=== PATIENT | female | born 1980 | race Caucasian/White ===

== ENCOUNTER → 2022-03-23 12:33 | Outpatient (BNVA) | payer MEDICARE, SELFPAY | PROVIDERS: Visit Provider Family Medicine | DX: M25.551 Pain in right hip (principal) | CPT/HCPCS: 73502 ==

== ENCOUNTER → 2022-04-03 11:54 | Outpatient (BNVA) | payer MEDICARE, SELFPAY | PROVIDERS: PCP Family Medicine; Visit Provider Family Medicine | DX: M25.559 Pain in unspecified hip (principal); L68.0 Hirsutism | CPT/HCPCS: 82040; 82947; 84144; 84146; 84270; 84403; 84443 ==

== ENCOUNTER 2022-04-29 06:00 | Outpatient (RCR) | payer MEDICARE, SELFPAY | END 2022-05-13 23:59 | disposition home or self-care (01) | LOC: TPT 06:00 | PROVIDERS: PCP Family Medicine; Visit Provider Family Medicine | DX: M25.559 Pain in unspecified hip (principal) | CPT/HCPCS: 97110; 97162 ==

== ENCOUNTER → 2022-05-12 11:55 | Outpatient (BNVA) | payer MEDICARE, SELFPAY | PROVIDERS: PCP Family Medicine; Visit Provider Family Medicine | DX: L68.0 Hirsutism (principal); M25.559 Pain in unspecified hip | CPT/HCPCS: 80053; 82040; 82672; 84270; 84402; 84403 ==

== ENCOUNTER 2022-05-14 06:00 | Outpatient (RCR) | payer MEDICARE, SELFPAY | END 2022-06-13 23:59 | disposition home or self-care (01) | LOC: TPT 06:00 | PROVIDERS: PCP Family Medicine; Visit Provider Family Medicine | DX: M25.559 Pain in unspecified hip (principal) | CPT/HCPCS: 97110 ==

== ENCOUNTER 2022-05-19 11:31 | Inpatient (IN) | payer MEDICARE, SELFPAY ==
--- NOTE | 2022-05-19 11:33 | ED.C_ITS ---
HPI - Psych General: Chief Complaint: Psychiatric Symptoms Stated Complaint: SI Time Seen by Provider: 05/19/22 11:33 History of Present Illness: Ms Piper is a 41-year-old lady with history of likely bipolar disorder, PTSD, childhood trauma presenting to the emergency department due to suicidal ideation with a plan. She reports plan to either overdose or hang herself. Symptoms of been worse for a few months, complicated by only intermittent use of medications secondary to social situation. She also reports cutting on her legs. Tetanus is up-to-date, no lacerations requiring sutures. She continues to have hallucinations with PTSD flashbacks. She reports significant social disturbance lately including coming to [place] from [place] and having the person who brought them here still with their staff and no longer offered the job that was promised. Overall course of symptoms is worsened. Intensity is severe. No other specific changes in health, exacerbating, or alleviating factors identified. Prior care: Pilar Allan in [facility]. [facility] clinic in [facility]. Duration: getting worse History of same: Yes Context: not taking psychiatric medications and significant life stressor Associated psychiatric symptoms: depression, suicidal ideation and racing thoughts If self harm: admits thoughts of self harm and has plan Review of Systems General: Reports: 10 or more systems reviewed and unremarkable except in HPI and below PFSH ED PFSH: Medical History No pertinent past medical history Surgical History Hx of appendectomy Hx of foot surgery Family History Other Family history unknown Social History Smoking and tobacco status: never smoked Second hand smoke exposure: No Alcohol intake: never Lives independently: Yes Household members: significant other and children Marital status: Single Number of children: 2 Highest education level completed: Some College, No Degree service: No Current occupational status: disabled History of recent travel: Yes Details: moved from [place] Out of state: Yes Out of country: No Current gender identity: Female Special luly needs: No Agree to transfusion: Yes Physical Exam Const: COMMON NORMALS: alert GENERAL APPEARANCE: cooperative and well developed HENMT: COMMON NORMALS: normocephalic and atraumatic HEAD & SCALP: normocephalic and atraumatic Eye: COMMON NORMALS: conjunctivae normal CONJUNCTIVA: Yes conjunctivae normal SCLERA: sclerae normal Neck/C-Spine: COMMON NORMALS: supple GENERAL: Yes trachea midline Resp: COMMON NORMALS: normal respiratory effort EFFORT & INSPECTION: Yes able to speak in complete sentences Cardio: COMMON NORMALS: regular rate and regular rhythm RATE: regular rate RHYTHM: regular rhythm GI: COMMON NORMALS: Soft to palpation PALPATION: Yes Soft to palpation and No Tenderness to palpation present (GI) PERCUSSION: normal to percussion Extremity: GENERAL: Yes normal exam except as noted and No edema Neuro: COMMON NORMALS: moves all extremities SENSORIUM/ORIENTATION: Yes alert and No Orientation impaired Psych: COMMON NORMALS: mental status grossly normal and Normal thought process present MOOD & AFFECT: Yes depressed mood and Yes sad THOUGHT PROCESS: Normal thought process present Course Vital Signs: Vital signs: Vital Signs Temperature 98.5 F 05/25/22 08:53 Pulse Rate 76 05/25/22 08:53 Respiratory Rate 20 H 05/25/22 08:53 Blood Pressure 125/84 05/25/22 08:53 Pulse Oximetry 96 05/25/22 08:53 Oxygen Delivery Me thod 05/24/22 21:19 Oxygen Flow Rate 3 05/25/22 07:37 MDM - Psych Medical Decision Making 41-year-old lady presenting to the emergency department for psychiatric evaluation. Reports history of same and intermittent use of medications and complicated symptoms due to current social situation and stressors. Exam as above. Patient does have a history of cutting though no repairable lacerations identified on exam. Unremarkable hematologic and metabolic panel. No evidence of urinary tract infection. Toxic ingestions negative, UDS positive for THC. Given clinical exam and history there is no indication for imaging at this time. Based on ED evaluation at this point there is no obvious condition that would preclude the patient from inpatient management of psychiatric concerns. Most likely etiology of patient's symptoms is underlying psychiatric disorder with depression and suicidal ideation. The results of ED evaluation were discussed with the patient including plan for admission due to requirement for level of care not available if discharged to prevent significant worsening/deterioration. Patient agreeable with plan. Discussed with psychiatry service who was agreeable to admit patient. Medical Records I reviewed the patient's medical records. Lab Data I reviewed the patient's lab results. 05/19/22 12:31 05/19/22 12:31 Laboratory Results WBC 7.0 10^3/uL (4.0-10.0) 05/19/22 12:31 RBC 3.75 10^6/uL (4.1-5.3) L 05/19/22 12:31 Hgb 11.7 g/dL (11.5-15.3) 05/19/22 12:31 Hct 35.2 % (37.0-47.0) L 05/19/22 12:31 MCV 93.9 fl (81-99) 05/19/22 12:31 MCH 31.2 pg (28.0-34.0) 05/19/22 12:31 MCHC 33.2 g/dL (30.0-36.0) 05/19/22 12:31 RDW 13.1 % (12.1-15.1) 05/19/22 12:31 Plt Count 246 10^3/cmm (130-400) 05/19/22 12:31 MPV 9.7 fL (7.4-10.4) 05/19/22 12:31 Neut % (Auto) 58.1 % 05/19/22 12:31 Lymph % (Auto) 30.2 % 05/19/22 12:31 Fleming % (Auto) 9.9 % 05/19/22 12:31 Eos % (Auto) 0.9 % 05/19/22 12:31 Baso % (Auto) 0.6 % 05/19/22 12:31 Neut # (Auto) 4.04 10^3/uL (1.8-7.7) 05/19/22 12:31 Lymph # (Auto) 2.1 10^3/uL (0.8-4.8) 05/19/22 12:31 Fleming # (Auto) 0.7 10^3/uL (0.2-0.9) 05/19/22 12:31 Eos # (Auto) 0.1 10^3/uL (0.0-0.8) 05/19/22 12:31 Baso # (Auto) 0.0 10^3/uL (0.0-0.1) 05/19/22 12:31 Nucleated RBC % (auto) 0 % 05/19/22 12:31 Nucleated RBCs # 0.0 /100WBC 05/19/22 12:31 Sodium 137 mmol/L (136-145) 05/19/22 12:31 Potassium 4.1 mmol/L (3.5-5.1) 05/19/22 12:31 Chloride 102 mmol/L (98-107) 05/19/22 12:31 Carbon Dioxide 28 mmol/L (22-29) 05/19/22 12:31 Anion Gap 11.1 (5-19) 05/19/22 12:31 BUN 14 mg/dL (6-20) 05/19/22 12:31 Creatinine 0.8 mg/dL (0.5-0.9) 05/19/22 12:31 GFR Calculation 79.4 mL/min (90-130) L 05/19/22 12:31 Glucose 94 mg/dL (65-115) 05/19/22 12:31 Calculated Osmolality 284 mOsm/kg (285-295) L 05/19/22 12:31 Calcium 8.9 mg/dL (8.5-10.5) 05/19/22 12:31 Total Bilirubin 0.3 mg/dL (0.15-1.2) 05/19/22 12:31 AST 16 U/L (0-32) 05/19/22 12:31 ALT 18 U/L (0-33) 05/19/22 12:31 Alkaline Phosphatase 69 U/L (35-105) 05/19/22 12:31 Total Protein 7.0 g/dL (6.6-8.7) 05/19/22 12:31 Albumin 4.1 g/dL (3.5-5.2) 05/19/22 12:31 Globulin 2.9 g/dL (1.3-4.6) 05/19/22 12:31 TSH 1.31 uIU/mL (0.27-4.20) 05/19/22 12:31 Urine Color Yellow (Yellow) 05/19/22 11:55 Urine Appearance Clear (CLEAR) 05/19/22 11:55 Urine pH 5 (5-7) 05/19/22 11:55 Ur Specific [place] 1.015 (1.005-1.030) 05/19/22 11:55 Urine Protein Neg (Negative) 05/19/22 11:55 Urine Glucose (UA) Norm (Normal) 05/19/22 11:55 Urine Ketones Negative (Negative) 05/19/22 11:55 Urine Blood Neg (Negative) 05/19/22 11:55 Urine Nitrate Negative (Negative) 05/19/22 11:55 Urine Bilirubin Neg (Negative) 05/19/22 11:55 Urine Urobilinogen Norm mg/dL (Negative) 05/19/22 11:55 Ur Leukocyte Esterase Negative (Negative) 05/19/22 11:55 Salicylates < 0.3 mg/dL (3-10) L 05/19/22 12:31 Urine Opiates Screen Negative ng/mL (Negative) 05/19/22 11:55 Acetaminophen < 5.0 ug/mL (10-30) L 05/19/22 12:31 Ur Barbiturates Screen Negative ng/mL (Negative) 05/19/22 11:55 Ur Phencyclidine Scrn Negative ng/mL (Negative) 05/19/22 11:55 Ur Amphetamines Screen Negative ng/mL (Negative) 05/19/22 11:55 U Benzodiazepines Scrn Negative ng/mL (Negative) 05/19/22 11:55 Urine Cocaine Screen Negative ng/mL (Negative) 05/19/22 11:55 U Marijuana (THC) Screen Positive ng/mL (Negative) H 05/19/22 11:55 Ethyl Alcohol < 10 mg/dL (0-10) 05/19/22 12:31 Discharge Plan Discharge Patient Disposition: Admitted As Inpatient Admit Provider: Monroe Proctor Clinical Impression: Suicidal ideation Condition: Stable Discharge Diet: Regular Discharge Activity: Resume usual activity Coding Level of Care Code ED Camouflage Assembler for Scarlett Noel
[2022-05-19 11:36] VITALS: BP 137/85; PULSE 92; RESP 17; TEMP 36.6; O2SAT 99; BMI 33.3
[2022-05-19 12:02] LABS: Add Urine Microscopic? NO; Charge for UA Resulting for Rev
[2022-05-19 12:12] VITALS: BP 150/92; PULSE 80; RESP 18; O2SAT 93
[2022-05-19 12:17] LABS: Bilirubin Urine Neg (Negative); Blood Urine Neg (Negative); Glucose Urine UA Norm (Normal); Ketones Urine Negative (Negative); Leukocyte Esterase Urine Negative (Negative); Nitrate Urine Negative (Negative); Protein Urine Neg (Negative); Specific Gravity, Urine 1.015 (1.005-1.030); Urine Appearance Clear (CLEAR); Urine Color Yellow (Yellow); Urobilinogen Urine Norm (Negative); pH Urine 5 (5-7)
[2022-05-19 12:26] LABS: Amphetamines Screen Urine Negative (Negative); Barbiturates Screen Urine Negative (Negative); Benzodiazepines Screen Urine Negative (Negative); Cocaine Screen Urine Negative (Negative); Opiate Screen Urine Negative (Negative); PCP Screen Urine Negative (Negative); THC Screen Urine Positive (Negative)
--- NOTE | 2022-05-19 12:32 | PC.PHAR ---
pt states she knows what medications she takes and states her partner lorenzo [phone] helps her with her meds also-pt states not filled klonopin since moving here-pt had rx on hold from 01/2022 at [facility] [phone] for 0.5mg bid-notes are made in the pharmacy comments
[2022-05-19 12:39] LABS: Basophils % 0.6 %; Eosinophils # 0.1 10^3/uL (0.0-0.8); Eosinophils % 0.9 %; Hematocrit 35.2 % (37.0-47.0); Hemoglobin 11.7 g/dL (11.5-15.3); Lymphocytes # 2.1 10^3/uL (0.8-4.8); Lymphocytes % 30.2 %; Mean Corpuscular HGB Conc 33.2 g/dL (30.0-36.0); Mean Corpuscular Hemoglobin 31.2 pg (28.0-34.0); Mean Corpuscular Volume 93.9 fl (81-99); Mean Platelet Volume 9.7 fL (7.4-10.4); Monocytes # 0.7 10^3/uL (0.2-0.9); Monocytes % 9.9 %; Neutrophils # 4.04 10^3/uL (1.8-7.7); Neutrophils % 58.1 %; Nucleated Red Blood Cells % 0 %; Platelet Count 246 10^3/cmm (130-400); Red Blood Count 3.75 10^6/uL (4.1-5.3); Red Cell Distribution Width 13.1 % (12.1-15.1)
--- NOTE | 2022-05-19 12:48 | PC.NURSE ---
pt stated later after denying homicidal ideation thatc she sometimes thinks about taking my kids with me
[2022-05-19 13:06] LABS: Alanine Aminotransferase 18 U/L (0-33); Albumin Level 4.1 g/dL (3.5-5.2); Alkaline Phosphatase 69 U/L (35-105); Anion Gap 11.1 (5-19); Aspartate Amino Transferase 16 U/L (0-32); Blood Urea Nitrogen 14 mg/dL (6-20); Calcium 8.9 mg/dL (8.5-10.5); Carbon Dioxide 28 mmol/L (22-29); Chloride 102 mmol/L (98-107); Creatinine Clr Calc Pharmacy 104.0176; Globulin 2.9 g/dL (1.3-4.6); Glomerular Filtration Rate 79.4 mL/min (90-130); Glucose 94 mg/dL (65-115); Osmolality Calculated 284 mOsm/kg (285-295); Potassium 4.1 mmol/L (3.5-5.1); Sodium 137 mmol/L (136-145); Thyroid Stimulating Hormone 1.31 uIU/mL (0.27-4.20); Total Bilirubin 0.3 mg/dL (0.15-1.2)
[2022-05-19 13:09] LABS: Acetaminophen < 5.0 ug/mL (10-30); Alcohol Level < 10 mg/dL (0-10); Salicylate < 0.3 mg/dL (3-10)
[2022-05-19 14:23] VITALS: BP 117/85; PULSE 70; O2SAT 97
[2022-05-19 16:15] VITALS: BP 117/78; PULSE 87; RESP 17; TEMP 37.1; O2SAT 97
[2022-05-19] MEDS: CLONazepam 0.5 mg Tablet PO (16:38)
[2022-05-19] MEDS: haloperidol 5 mg Tablet PO (17:40)
[2022-05-19] MEDS: spironolactone 25 mg Tablet 100 MG PO (17:40)
[2022-05-19] MEDS: lurasidone 20 mg Tablet PO (20:40)
[2022-05-19] MEDS: lurasidone 80 mg Tablet PO (20:40)
[2022-05-19 22:00] VITALS: RESP 17
[2022-05-20] MEDS: multivitamin therapeutic Tablet 1 TAB PO (05:59)
[2022-05-20] MEDS: buPROPion XL (24 HR) 150 mg Tablet PO (05:59)
[2022-05-20 06:00] VITALS: BP 109/71; PULSE 75; RESP 16; TEMP 37.2; O2SAT 96
[2022-05-20] MEDS: spironolactone 25 mg Tablet 100 MG PO ×2 (08:34→20:51)
--- NOTE | 2022-05-20 08:36 | PC.NURSE ---
SHIFT ASSESSMENT WITHDRAWN, IN ROOM AT TIME OF ASSESSMENT, ASKED IF SHE ATE HER BREAKFAST, PT STATED A LITTLE, I TRIED TO. DENIES HI/HALLUCINATIONS, WHEN ASKED IF SHE WAS SUICIDAL PT STATED I JUST DON'T WANT TO LIVE ANYMORE. COMPLIANT WITH SCHEDULED MED ADMINISTRATION. DID CONTRACT FOR SAFETY. STAFF WILL CONT TO MONITOR AND REDIRECT NEEDED
[2022-05-20] MEDS: CLONazepam 0.5 mg Tablet PO (09:07)
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
[2022-05-20 14:00] VITALS: BP 132/80; PULSE 88; RESP 18; TEMP 36.6; O2SAT 93
[2022-05-20] MEDS: hyDROXYzine 25 mg Capsule 50 MG PO (18:00)
[2022-05-20] MEDS: OLANZapine 5 mg ODT PO (18:00)
--- NOTE | 2022-05-20 18:00 | PC.NURSE ---
PRN VISTARIL & ZYPREXA ZYDIS VISTARIL 50 MG GIVEN PO WITH ZYPREXA ZYDIS 5 MG PO SUBLINGUAL PER PT C/O ANXIETY/AGITATION. STAFF HEARD BANGING COMING FROM ROOM 131, STAFF ENTERED TO FIND PATIENT SITTING ON THE CORNER OF HER BED, BANGING HEAD REPEATEDLY AGAINST THE WALL. STAFF ASKED PATIENT TO CEASE BEHAVIOR...PILLOW PLACED BETWEEN WALL & PATIENT'S HEAD TO PREVENT FURTHER CONTACT. PT STATED I JUST WANT TO CUT, I JUST WANT TO CUT OFFERED PRN MEDICATIONS WHICH PATIENT WAS AGREEABLE TO TAKING. STAFF PACING HALLWAY WITH PATIENT CURRENTLY TO ENCOURAGE THERAPEUTIC COMMUNICATION.
[2022-05-20 20:22] VITALS: BP 113/73; PULSE 70; RESP 16; TEMP 37.1; O2SAT 96
[2022-05-20] MEDS: lurasidone 20 mg Tablet PO (20:51)
[2022-05-20] MEDS: trazodone 50 mg Tablet PO (20:51)
[2022-05-20] MEDS: lurasidone 80 mg Tablet PO (20:51)
[2022-05-21] MEDS: buPROPion XL (24 HR) 150 mg Tablet PO (05:54)
[2022-05-21] MEDS: multivitamin therapeutic Tablet 1 TAB PO (05:54)
[2022-05-21 06:00] VITALS: BP 100/62; PULSE 68; RESP 16; TEMP 37; O2SAT 95
[2022-05-21] MEDS: spironolactone 25 mg Tablet 100 MG PO ×2 (09:42→20:13)
--- NOTE | 2022-05-21 10:13 | PC.NURSE ---
late entry 05/20/22 18:00 Pt banging head on wall in room, nurse places a pillow against the wall and talked with pt to please stop banging head. Pt has red lump on forehead from this behavior, and from previous self harm behaviors.
--- NOTE | 2022-05-21 12:53 | PC.NURSE ---
Pt came to nurses station asking to speak with someone as was feeling very emotional after a phone call. Pt tearful saying she needed to be home so she could take care of her children. Said Family Services paid a visit to her home and she is afraid her kids will be taken from her. Pt also voiced her 17 year old dog is missing and it's blind and deaf and she's afraid for its safety. Reassurance provided to pt to help her recognize some of her strengths. Pt said she brought herself to the hospital because she was feeling depressed and anxious and she came to staff for help which was what she'd agreed to do. Pt encouraged to brainstorm and write down issues she feels she needs to address and to discuss them with oncology social work/the physician to help prioritize them as working in one are might help alleviate any number of concerns she might have. Also encouraged pt to write down what self talks she gives herself so she can come up with more positive ones. Pt encouraged to ask her family to continue to look for the dog and also notify Animal Control so they are aware the dog is missing and can call them if the dog is found. Some positive sayings were provided to the pt and by the end of our contact, the pt said she felt better and smiled some. Td, Credit Review Officer, notified of situation and he said he would see the pt.
[2022-05-21 14:00] VITALS: BP 111/75; PULSE 85; RESP 17; TEMP 37.1; O2SAT 96
[2022-05-21] MEDS: CLONazepam 0.5 mg Tablet PO (15:51)
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
[2022-05-21] MEDS: hyDROXYzine 25 mg Capsule 50 MG PO (19:09)
[2022-05-21] MEDS: OLANZapine 5 mg ODT PO (19:09)
[2022-05-21 20:13] VITALS: BP 118/88; PULSE 99; RESP 17; TEMP 36.8; O2SAT 94
[2022-05-21] MEDS: haloperidol 5 mg Tablet PO (20:14)
[2022-05-21] MEDS: lurasidone 20 mg Tablet PO (20:14)
[2022-05-21] MEDS: lurasidone 80 mg Tablet PO (20:14)
[2022-05-21] MEDS: doxepin 10 mg Capsule PO (20:14)
[2022-05-22] MEDS: multivitamin therapeutic Tablet 1 TAB PO (05:31)
[2022-05-22] MEDS: buPROPion XL (24 HR) 150 mg Tablet PO (05:31)
[2022-05-22 06:00] VITALS: RESP 16
[2022-05-22] MEDS: spironolactone 25 mg Tablet 100 MG PO ×2 (08:25→20:20)
[2022-05-22] MEDS: CLONazepam 0.5 mg Tablet PO ×2 (09:31→20:20)
--- NOTE | 2022-05-22 09:33 | PC.NURSE ---
prn KLONOPIN 0.5 MG GIVEN PO PER PT C/O STATED ANXIETY, TEARFUL, SAYING HER DOG IS MISSING FROM HOME, STATED SHE WANTS TO CUT CONTRACTED FOR SAFETY AT THIS TIME. GIVEN A DRINK AND PRN MED & ENCOURAGED TO USE OTHER COPING SKILLS TO DECREASE HER ANXIETY
[2022-05-22] MEDS: buPROPion XL (24 HR) 300 mg Tablet PO (12:31)
--- NOTE | 2022-05-22 12:35 | PC.NURSE ---
med verification of Wellbutrin XL 300 mg given po today @ 0531, med given by nurse Adelaida Harris LPN. med did not save after nurse Adelaida scanned this morning, but Adelaida called back and verbally clarified med administration was done.
[2022-05-22 15:47] VITALS: BP 116/76; PULSE 80; RESP 17; TEMP 36.7; O2SAT 93
--- NOTE | 2022-05-22 18:35 | W.PM.NPUPNS ---
Subjective NPU Subjective: Patient presented today having continued distress about her home situation and what comes next. She continues to struggle with triggers that challenge her cluster B/borderline behavior. Attempts today to obtain a broken spoon to cut herself. We discussed options to be some aggressive behaviors. She is aware of the need for ongoing DBT treatment but struggles mightily with her emotional dysregulation. She wrote a note to this public relations writer that essentially_her borderline personality disorder talking about abandonment, desire to harm herself etc. Mental Status Exam MSE Comments: This is an overweight white female with herstism in hospital scrubs with limited grooming and eye contact. No abnormal movements except for psychomotor retardation. Cooperative with exam in mild to moderate distress. Speech was slightly increased rate and normal volume. Mood described as still depressed, affect is congruent. Thought process, organized. Thought content: patient endorsed thoughts of self harm, as well as passive wish, but denied suicidal or homicidal ideation, no delusions reported or noted and reports visual and auditory hallucinations at points. Attention and concentration are intact and memory appeared reliable but none were formally tested. She is alert and oriented times three. Insight and judgment are limited. Impulse control is limited. Vitals/I&O/Wt Last Vital Signs Temp 98.0 F 05/22/22 15:47 Pulse 88 05/22/22 20:56 Resp 15 05/22/22 20:56 BP 118/87 05/22/22 20:56 Pulse Ox 99 05/22/22 20:56 O2 Del Method 05/22/22 15:47 O2 Flow Rate 3 05/22/22 20:00 Data NPU 05/19/22 12:31 05/19/22 12:31 A&P Assessment and plan (1) Suicidal ideation: (2) Hirsutism: (3) Hip pain: (4) PTSD (post-traumatic stress disorder): (5) Major depressive disorder: (6) Borderline personality disorder: Plan This is a 41 year old white woman with a history of trauma, suicidal ideation and genetic loading for mental health, addiction and lethality issues who presents with recent suicidal ideation reporting continued suicidal thoughts and an openness to changes in those medications. 1. Continue current medications. Increased Wellbutrin XL to 300 mg p.o. every morning and discontinued trazodone and start doxepin 10 mg p.o. nightly. We were finally able to obtain her Viibryd which will start today. 2. Encourage individual, group and milieu therapy 3. Continue q-15 minute check for safety Involuntary Hold Information 96 Hour Hold: 96 Hour Involuntary Admission: No Attestations NPU Medical Necessity Statement*: Inpatient hospitalization is medically necessary and the clinically appropriate intervention at this time. We will monitor medications and make changes as indicated. Likely length of stay is 2-4 days. Coding Level of Care Code Acute Senior Commissions Analyst for [facility] Fwd Diagnoses Suicidal ideation R45.851 Hirsutism L68.0 Hip pain M25.559 PTSD (post-traumatic stress disorder) F43.10 Major depressive disorder F32.9 Borderline personality disorder F60.3
[2022-05-22] MEDS: lurasidone 80 mg Tablet PO (20:20)
[2022-05-22] MEDS: lurasidone 20 mg Tablet PO (20:20)
[2022-05-22] MEDS: doxepin 10 mg Capsule PO (20:20)
[2022-05-22] MEDS: magnesium hydroxide 30 mL UDC PO (20:47)
[2022-05-22 20:56] VITALS: BP 118/87; PULSE 88; RESP 15; O2SAT 99
[2022-05-22] MEDS: hyDROXYzine 25 mg Capsule 50 MG PO (21:16)
[2022-05-22] MEDS: haloperidol 5 mg Tablet PO (21:17)
[2022-05-23] MEDS: multivitamin therapeutic Tablet 1 TAB PO (05:56)
[2022-05-23] MEDS: buPROPion XL (24 HR) 300 mg Tablet PO (05:56)
[2022-05-23 06:00] VITALS: RESP 14
[2022-05-23] MEDS: spironolactone 25 mg Tablet 100 MG PO ×2 (08:28→21:08)
[2022-05-23] MEDS: CLONazepam 0.5 mg Tablet PO (09:27)
--- NOTE | 2022-05-23 10:25 | PC.NURSE ---
At 0925, patient tearful. States she is worried about her dog, that is currently lost. Patient states she feels she should be out looking for the dog and she feels the dog is missing her. Patient states she doesn't know what to do with all she is feeling and asked for PRN. Klonopin was given (see MAR). at this time, patient stating she feels the klonopin is working, patient no longer crying. Will continue to monitor.
--- NOTE | 2022-05-23 13:57 | P.NPUPN_ITS ---
Subjective NPU Subjective: Patient presented today reporting that she was doing okay. She discussed possibly going home at 1 point but also possibly going to some inpatient/residential treatment facility. We discussed the fact that it would be unlikely that she would meet the criteria for the need for inpatient servic es. We also discussed that her current living arrangement would not be conducive to stability. She reports that she is having no side effects to the medication and is possibly a tiny bit better. She is sleeping better and eating okay. Mental Status Exam MSE Comments: This is an overweight white female with herstism in hospital scrubs with limited grooming and eye contact. No abnormal movements except for psychomotor retardation. Cooperative with exam in mild to moderate distress. Speech was slightly increased rate and normal volume. Mood described as still depressed, affect is congruent. Thought process, organized. Thought content: patient endorsed thoughts of self harm, as well as passive wish, but denied suicidal or homicidal ideation, no delusions reported or noted and reports visual and auditory hallucinations at points. Attention and concentration are intact and memory appeared reliable but none were formally tested. She is alert and oriented times three. Insight and judgment are limited. Impulse control is limited. Vitals/I&O/Wt Last Vital Signs Temp 98.0 F 05/22/22 15:47 Pulse 88 05/22/22 20:56 Resp 14 05/23/22 06:00 BP 118/87 05/22/22 20:56 Pulse Ox 99 05/22/22 20:56 O2 Del Method 05/22/22 15:47 O2 Flow Rate 3 05/22/22 20:00 Data NPU 05/19/22 12:31 05/19/22 12:31 A&P Assessment and plan (1) Suicidal ideation: (2) Hirsutism: (3) Hip pain: (4) PTSD (post-traumatic stress disorder): (5) Major depressive disorder: (6) Borderline personality disorder: Plan This is a 41 year old white woman with a history of trauma, suicidal ideation and genetic loading for mental health, addiction and lethality issues who presents with recent suicidal ideation reporting continued suicidal thoughts and an openness to changes in those medications. 1. Continue current medications. Increased Wellbutrin XL to 300 mg p.o. every morning and discontinued trazodone and started doxepin 10 mg p.o. nightly. We were finally able to obtain her Viibryd which will start today. 2. Encourage individual, group and milieu therapy 3. Continue q-15 minute check for safety Involuntary Hold Information 96 Hour Hold: 96 Hour Involuntary Admission: No Attestations NPU Medical Necessity Statement*: Inpatient hospitalization is medically necessary and the clinically appropriate intervention at this time. We will monitor medications and make changes as indicated. Likely length of stay is 2-4 days. Coding Level of Care Code Acute International Organizer for [facility] Fwd Diagnoses Suicidal ideation R45.851 Hirsutism L68.0 Hip pain M25.559 PTSD (post-traumatic stress disorder) F43.10 Major depressive disorder F32.9 Borderline personality disorder F60.3
[2022-05-23 14:00] VITALS: BP 110/76; PULSE 86; RESP 16; TEMP 36.6; O2SAT 98
[2022-05-23] MEDS: OLANZapine 5 mg ODT PO (15:34)
--- NOTE | 2022-05-23 15:35 | PC.NURSE ---
PRN Patient states she if feeling angry and agitated. States she just wants to go find her dog. Patient asking for something to help her calm down. Zyprexa 5mg given PO.
--- NOTE | 2022-05-23 16:25 | PC.NURSE ---
PRN Follow Up Patient lying in bed. States that the medication really helped. Will continue to monitor.
[2022-05-23] MEDS: bisacodyl 5 mg Tablet PO (17:11)
[2022-05-23] MEDS: haloperidol 5 mg Tablet PO (18:30)
[2022-05-23] MEDS: doxepin 10 mg Capsule PO (21:06)
[2022-05-23] MEDS: lurasidone 80 mg Tablet PO (21:06)
[2022-05-23] MEDS: lurasidone 20 mg Tablet PO (21:06)
[2022-05-23 21:11] VITALS: BP 108/75; PULSE 102; RESP 18; TEMP 36.4; O2SAT 97
[2022-05-24 06:00] VITALS: BP 114/72; PULSE 55; RESP 16; TEMP 36.7; O2SAT 97; BMI 33.3
[2022-05-24] MEDS: buPROPion XL (24 HR) 300 mg Tablet PO (06:28)
[2022-05-24] MEDS: multivitamin therapeutic Tablet 1 TAB PO (06:28)
[2022-05-24] MEDS: acetaminophen 325 mg Tablet 650 MG PO (06:30)
[2022-05-24] MEDS: spironolactone 25 mg Tablet 100 MG PO ×2 (08:31→21:00)
--- NOTE | 2022-05-24 08:33 | PC.NURSE ---
shift assessment mood is bright, pleasant affect, smiling with staff interaction. med compliant, denies SI/HI/AVH currently.
--- NOTE | 2022-05-24 08:39 | PC.NURSE ---
PRN BISACODYL 5 MG GIVEN PO PER PT C/O CONSTIPATION, PT STATES SHE HAS CRONIC PROBLEMS WITH CONSTIPATION, BUT REPORTS THESE PILLS AREN'T WORKING, I HAVEN'T POOPED SINCE I'VE BEEN HERE AND I'M GETTING WORRIED ASSURED PATIENT THAT WE WOULD RELAY THIS INFO TO PHYSICIAN, AND GET HER MORE MEDS NEEDED TO ENCOURAGE A BOWEL MOVEMENT.
[2022-05-24] MEDS: bisacodyl 5 mg Tablet PO ×2 (08:42→21:00)
--- NOTE | 2022-05-24 11:14 | W.PM.NPUPNS ---
Subjective NPU Subjective: Patient presented today reporting that her son is having surgery tomorrow morning and that she is feeling like she should be there for him. We discussed her considering the options and whether she feels ready to manage the challenges at her home as she seeks out some DBT treatment. We talked about resources online. And we would discuss whether or not this is something that she is safe and prepared for in the morning. Mental Status Exam MSE Comments: This is an overweight white female with herstism in hospital scrubs with limited grooming and eye contact. No abnormal movements except for psychomotor retardation. Cooperative with exam in mild distress. Speech was slightly increased rate and normal volume. Mood described as okay I guess but I need to be there for my son, affect is congruent. Thought process, organized. Thought content: patient denied suicidal or homicidal ideation, no delusions reported or noted and reports visual and auditory hallucinations at points. Attention and concentration are intact and memory appeared reliable but none were formally tested. She is alert and oriented times three. Insight and judgment are limited. Impulse control is limited. Vitals/I&O/Wt Last Vital Signs Temp 98.0 F 05/24/22 06:00 Pulse 55 L 05/24/22 06:00 Resp 16 05/24/22 06:00 BP 114/72 05/24/22 06:00 Pulse Ox 97 05/24/22 06:00 O2 Del Method 05/23/22 14:00 O2 Flow Rate 3 05/24/22 08:32 Weight last 48 hrs Weight 90.718 kg Data NPU 05/19/22 12:31 05/19/22 12:31 A&P Assessment and plan (1) Suicidal ideation: (2) Hirsutism: (3) Hip pain: (4) PTSD (post-traumatic stress disorder): (5) Major depressive disorder: (6) Borderline personality disorder: Plan This is a 41 year old white woman with a history of trauma, suicidal ideation and genetic loading for mental health, addiction and lethality issues who presents with recent suicidal ideation reporting continued suicidal thoughts and an openness to changes in those medications. 1. Continue current medications. Increased Wellbutrin XL to 300 mg p.o. every morning and discontinued trazodone and started doxepin 10 mg p.o. nightly. Viibryd was restarted. 2. Encourage individual, group and milieu therapy 3. Continue q-15 minute check for safety. 4. We will consider discharge in the morning. Involuntary Hold Information 96 Hour Hold: 96 Hour Involuntary Admission: No Attestations NPU Medical Necessity Statement*: Inpatient hospitalization is medically necessary and the clinically appropriate intervention at this time. We will monitor medications and make changes as indicated. Likely length of stay is 1-3 days. Coding Level of Care Code Acute Deputy Attorney General for [facility] Fwd Diagnoses Suicidal ideation R45.851 Hirsutism L68.0 Hip pain M25.559 PTSD (post-traumatic stress disorder) F43.10 Major depressive disorder F32.9 Borderline personality disorder F60.3
[2022-05-24 14:00] VITALS: BP 124/76; PULSE 100; RESP 18; TEMP 36.5; O2SAT 97
[2022-05-24] MEDS: CLONazepam 0.5 mg Tablet PO (17:49)
--- NOTE | 2022-05-24 17:50 | PC.NURSE ---
PRN KLONOPIN 0.5 MG GIVEN PO PER PT C/O ANXIETY, PT TEARFUL, ANXIOUS ABOUT BEING HERE AND WANTING HELP TO GET INTO A DAY PROGRAM. ENCOURAGED TO SPEAK TO SOCIAL WORKERS IN THE MORNING ABOUT FURTHER INFORMATION ON DAY PROGRAMS FOR HER. WILL CONT TO MONITOR
[2022-05-24] MEDS: lurasidone 20 mg Tablet PO (21:00)
[2022-05-24] MEDS: lurasidone 80 mg Tablet PO (21:00)
[2022-05-24] MEDS: doxepin 10 mg Capsule PO (21:00)
[2022-05-24] MEDS: magnesium hydroxide 30 mL UDC PO (21:06)
[2022-05-24 21:19] VITALS: BP 117/75; PULSE 62; RESP 17; TEMP 36.7; O2SAT 93
[2022-05-24] MEDS: OLANZapine 5 mg ODT PO (21:57)
[2022-05-25 06:00] VITALS: BP 125/84; PULSE 76; RESP 20; TEMP 36.9; O2SAT 96
[2022-05-25] MEDS: multivitamin therapeutic Tablet 1 TAB PO (06:10)
[2022-05-25] MEDS: buPROPion XL (24 HR) 300 mg Tablet PO (06:10)
--- NOTE | 2022-05-25 07:39 | PC.NURSE ---
shift assessment pleasant pacing hallways this morning, denies SI/HI/AVH currently. cont to c/o being constipated. encouraged to drink fluids and ambulate.
[2022-05-25] MEDS: spironolactone 25 mg Tablet 100 MG PO (07:45)
[2022-05-25 08:53] VITALS: BP 125/84; PULSE 76; RESP 20; TEMP 36.9; O2SAT 96
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
--- NOTE | 2022-05-25 09:19 | DCPLANNER ---
IMM completed with pt on 05/25/22 @ 2674. Pt was given a copy of rights and she stated she understood her rights.
[2022-05-25] MEDS: hyDROXYzine 25 mg Capsule 50 MG PO (09:27)
--- NOTE | 2022-05-25 09:27 | PC.NURSE ---
PRN VISTARIL 50 MG GIVEN PO PER PT C/O STATED ANXIETY. WILL CONT TO MONITOR
== END 2022-05-25 09:45 | disposition home or self-care (01) | DRG 883 ==
LOC: ER 13:10 → NP 14:06
PROVIDERS: Admitting Provider Psychiatry & Neurology Psychiatry; Emergency Provider Emergency Medicine; PCP Family Medicine; Visit Provider Psychiatry & Neurology Psychiatry
DX: F60.89 Other specific personality disorders (principal); R45.851 Suicidal ideations; F32.9 Major depressive disorder, single episode, unspecified; F43.10 Post-traumatic stress disorder, unspecified; F41.9 Anxiety disorder, unspecified; L68.0 Hirsutism; Z91.52 Personal history of nonsuicidal self-harm; Z81.8 Family history of other mental and behavioral disorders; Z91.51 Personal history of suicidal behavior; Z81.3 Family history of other psychoactive substance abuse and dependence; Z62.810 Personal history of physical and sexual abuse in childhood; Z62.811 Personal history of psychological abuse in childhood; Z63.0 Problems in relationship with spouse or partner
CPT/HCPCS: 36415; 80053; 80306; 80307; 81003; 84443; 85025; 97110; 97150; 97165; 99285

== ENCOUNTER 2022-06-14 06:00 | Outpatient (RCR) | payer MEDICARE, SELFPAY | END 2022-07-14 23:59 | disposition home or self-care (01) | LOC: TPT 06:00 | PROVIDERS: PCP Family Medicine; Visit Provider Family Medicine | DX: M25.559 Pain in unspecified hip (principal) | CPT/HCPCS: 97110 ==

== ENCOUNTER → 2022-07-02 14:44 | Outpatient (BNVA) | payer MEDICARE, SELFPAY | PROVIDERS: PCP Family Medicine; Visit Provider Family Medicine | DX: N91.2 Amenorrhea, unspecified (principal); L68.0 Hirsutism | CPT/HCPCS: 81025 ==

== ENCOUNTER → 2022-07-23 16:39 | Outpatient (BNVA) | payer MEDICARE, SELFPAY | PROVIDERS: PCP Family Medicine; Visit Provider Family Medicine | DX: J02.9 Acute pharyngitis, unspecified (principal); J02.0 Streptococcal pharyngitis | CPT/HCPCS: 87880 ==

== ENCOUNTER → 2022-11-30 08:15 | Outpatient (BNVA) | payer MEDICARE, SELFPAY | PROVIDERS: PCP Family Medicine; Referring Provider Family Medicine; Visit Provider Nurse Practitioner Family | DX: L68.0 Hirsutism (principal); L81.4 Other melanin hyperpigmentation; D22.5 Melanocytic nevi of trunk; Z71.89 Other specified counseling | CPT/HCPCS: 99204 ==

== ENCOUNTER 2023-01-06 16:06 | Outpatient (CLI) | payer MEDICARE, SELFPAY ==
--- NOTE | 2023-01-06 16:17 | XR_ITS ---
WS: [id number] EXAMINATION: XR elbow RT min 3V* [id number] REASON FOR EXAM: M25.521 - Pain in right elbow COMPARISON: None available. ORDER DATE: 01/06/2023 4:17 PM FINDINGS: There is no sign of any acute osseous or articular abnormality. There are no specific soft tissue abn ormalities. XR/XR elbow RT min 3V* [id number] IMPRESSION: No acute change
== END 2023-01-06 16:07 | disposition home or self-care (01) ==
PROVIDERS: PCP Family Medicine; Visit Provider Family Medicine
DX: M25.521 Pain in right elbow (principal); L68.0 Hirsutism; L81.4 Other melanin hyperpigmentation; D22.5 Melanocytic nevi of trunk; Z71.89 Other specified counseling
CPT/HCPCS: 73080; 82040; 82157; 82627; 84270; 84402; 84403; 84439; 84443

== ENCOUNTER → 2023-01-19 10:13 | Outpatient (BNVA) | payer MEDICARE, SELFPAY | PROVIDERS: PCP Family Medicine; Visit Provider Student in an Organized Health Care Education/Training Program | DX: M77.11 Lateral epicondylitis, right elbow | CPT/HCPCS: 99203 ==

== ENCOUNTER 2023-11-25 11:21 | Outpatient (CLI) | payer MEDICARE, MEDICAID, SELFPAY ==
--- NOTE | 2023-11-25 11:41 | XRR_ITS ---
PROCEDURE INFORMATION: Exam: XR Pelvis Exam date and time: 11/25/2023 11:46 AM Age: 43 years old Clinical indication: Hip pain; Left hip; Additional info: L hip pain, standing TECHNIQUE: Imaging protocol: Radiologic exam of the pelvis. Views: 1 or 2 view. COMPARISON: CR XR hip RT 2-3V wo/w pel* [id number] 03/23/2022 12:40 PM FINDINGS: Bones/joints: Unremarkable. No acute fracture. Soft tissues: Unremarkable. XR/XR pelvis 1-2V* [id number] IMPRESSION: No acute findings.
== END 2023-11-25 11:22 | disposition home or self-care (01) ==
PROVIDERS: PCP Internal Medicine; Visit Provider Internal Medicine
DX: M25.552 Pain in left hip (principal)
CPT/HCPCS: 72170

== ENCOUNTER 2024-03-22 10:01 | Outpatient (CLI) | payer MEDICARE, MEDICAID, SELFPAY ==
--- NOTE | 2024-03-22 10:06 | MR_ITS ---
WS: [id number] MRI RIGHT SHOULDER, with and without contrast HISTORY: TENDINITIS OF RIGHT INFRASPINATUS TENDON COMPARISON: None available. TECHNIQUE: Multiplanar sequences of the shoulder joint are submitted. Post contrast MultiHance 20 mL IV. Moderate AC joint arthritis. Small osteophytes and soft tissue encroachment upon the supraspinatus mu scle. Mild downsloping of the acromion and subacromial impingement. No significant subacromial or sub deltoid fluid. No os acromion. Normal position of the biceps tendon. No rotator cuff muscle atrophy or edema. Very small insertion site tear of the infraspinatus tendon. Partial interstitial extension of the tear. No fracture or marrow edema. Normal position of the humer al head at the glenoid. Mild fraying of the labrum. Mild intrasubstance degeneration but cannot confi rm a tear. Most abnormal signal is in the superior labrum but is only mildly intermediate on the T2 s equence. There is mild enhancement around the AC joint suggesting a mild inflammatory arthritis. MR/MR shoulder RT wo/w con [id number] IMPRESSION: 1. Moderate AC joint arthritis with mild enhancement. 2. Small insertion site tear of the infraspinatus tendon with interstitial ext ension. 3. No rotator cuff muscle atrophy or edema. 4. Mild subacromial impingement by downsloping acromion.
[2024-03-22] MEDS: gadobenate dimeglumine 20 mL vial IV (10:32)
== END 2024-03-22 10:02 | disposition home or self-care (01) ==
LOC: RAD 10:02
PROVIDERS: PCP Internal Medicine; Visit Provider Internal Medicine
DX: M77.8 Other enthesopathies, not elsewhere classified (principal); M75.41 Impingement syndrome of right shoulder; M19.011 Primary osteoarthritis, right shoulder
CPT/HCPCS: 73223; A9577

== ENCOUNTER → 2024-04-21 10:26 | Outpatient (BNVA) | payer MEDICARE, MEDICAID, SELFPAY | PROVIDERS: PCP Internal Medicine; Visit Provider Student in an Organized Health Care Education/Training Program | DX: M25.511 Pain in right shoulder (principal); M75.101 Unspecified rotator cuff tear or rupture of right shoulder, not specified as traumatic; M19.011 Primary osteoarthritis, right shoulder; M75.41 Impingement syndrome of right shoulder; M75.21 Bicipital tendinitis, right shoulder | CPT/HCPCS: 73030; 99214 ==

== ENCOUNTER 2024-05-24 11:52 | Day surgery (SDC) | payer MEDICARE, MEDICAID, SELFPAY ==
[2024-05-24] VITALS (10 sets, daily range): BP systolic 119–163; BP diastolic 69–88; PULSE 51–71; RESP 16–19; TEMP 36.1–36.3; O2SAT 94–95; BMI 40.3
[2024-05-24] MEDS: sodium chloride 0.9% 1,000 ML 30 ML IV (12:35)
[2024-05-24] MEDS: scopolamine 1.5 Patch 1 PATCH TRANSDERMA (12:36)
[2024-05-24] MEDS: ketorolac 30 mg/mL INJ IVP (12:38)
[2024-05-24] MEDS: acetaminophen 1,000 MG/100 ML PIGGYBACK 400 MG IV (12:41)
--- NOTE | 2024-05-24 12:44 | ANES.PREANE2 ---
Pre-Anesthetic Assessment Height/Weight: Height 5 ft 6 in Weight 250 lb Temp Pulse Resp BP Pulse Ox O2 Del Method 97.0 F L 66 18 119/69 95 Room Air 05/24/24 12:11 05/24/24 12:11 05/24/24 12:11 05/24/24 12:11 05/24/24 12:11 05/24/24 12:13 Preop Diagnosis: Rotator cuff tear Operation Date: 05/24/24 14:05 Proposed Procedures p shoulder diagnostic and surgical arthroscopy(Right) - Jc Navajo, DO s Subacromial Decompression(Right) - Jc Navajo DO s AC Joint Resection(Right) - Jc Navajo, DO s rotator cuff debridement versus repair(Right) - Jc Navajo, DO s Bicep Tenodesis(Right) - Jc Paulette, DO Was Beta Maame taken within 24 hours: N/A Was Clonidine taken within 24 hours: N/A Last intake: Intake Last Liquid Date 05/23/24 Last Liquid Time 21:00 Last Solid Date 05/23/24 Last Solid Time 21:00 Social No alcohol and No tobacco Exam alert, oriented x 3, clear to auscultation bilaterally and regular rate & rhythm Airway Submandibular: within normal limits Cervical ROM: within normal limits Mallampati: Class II Dentition: partials Anesthetic Plan ASA status: 3 Anesthesia: General Other: No prior issues with anesthesia NPO since yesterday History of MDD and PTSD BMI 40.4 Denies any cardiac or pulmonary issues METs greater than 4 Plan for general anesthesia with preop nerve block Medications/Allergies Home Medications Medication Instructions Recorded Confirmed Last Taken Type vilazodone 40 mg tablet (Viibryd) 40 mg PO BEDTIME 03/23/22 05/23/24 05/18/22 History multivitamin 1 tab PO QAM 05/19/22 05/23/24 04/23/24 History clonazepam 0.5 mg tablet (Klonopin) 1 mg PO BID 07/02/22 05/23/24 05/23/24 History bupropion HCl 100 mg tablet,12 hr 100 mg PO DAILY 07/09/23 05/23/24 05/23/24 History sustained-release ibuprofen 800 mg tablet 800 mg PO Q8H #60 tabs 02/18/24 05/23/24 04/23/24 Rx olanzapine 10 mg-samidorphan 10 mg 1 tab PO DAILY 05/23/24 05/23/24 05/23/24 History tablet (Lybalvi) prazosin 5 mg capsule 5 mg PO BEDTIME 05/23/24 05/23/24 05/22/24 History trazodone 50 mg tablet 50 mg PO BEDTIME 05/23/24 05/23/24 05/22/24 History Allergies Allergy/AdvReac Type Severity Reaction Status Date / Time No Known Allergies Allergy Verified 05/24/24 12:05 Current Medications Generic Name Dose Route Start Last Admin Trade Name Jadenq PRN Reason Stop Dose Admin Sodium Chloride 1,000 mls @ 30 mls/hr 05/24/24 12:00 05/24/24 12:35 Sodium Chloride 0.9% IV 05/25/24 11:59 30 mls/hr .Q24H MELVA Administration PFSH Anesthesia Medical History No pertinent past medical history Surgical History Hx of appendectomy Hx of foot surgery Family History Other Suicide Denies family history of Colon cancer Ovarian cancer Diabetes Heart disease Hyperlipidemia Breast cancer Hypertension Uterine cancer Thyroid disease Stroke Social History Smoking and tobacco/nicotine status: never used tobacco/nicotine Second hand smoke exposure: No Alcohol intake: never Substance/Drug Use: current Substance/Drug use frequency: daily Lives independently: Yes Household members: significant other and children Marital status: Single Number of children: 2 Highest education level completed: Some College, No Degree service: No Current occupational status: disabled Current gender identity: Female Special luly needs: No Agree to transfusion: Yes Female Reproductive History Date of last menstrual period: 05/23/24 Data Anesthesia Cardiac Studies: No Data to Display
--- NOTE | 2024-05-24 13:04 | ANES.PROC ---
Anesthesia Procedures Procedure/Date: 05/24/24 Nerve Block ^: Nerve Block 1: Time Out Performed: Yes Consent: requested by attending/covering physician and from patient Nerve block location: interscalene Anesthesia monitors applied: pulse oximetry, EKG, BP cuff and oxygen Nerve block position: supine Anesthetic Used: ropivicaine 0.5% Amount of anesthesia used (mL): 30 Ultrasound used to: recognize landmarks Nerve Stimulator Used?: Yes Interscalene/Femoral BLK: other needle (pjunk 4inch) Injection: neg aspiration of heme Patient Tolerated Procedure: well Complications: none Additional Comments: decadron 4mg added to block
--- NOTE | 2024-05-24 13:04 | SUR.PREOP ---
Block to right interscalene perfomred in preop using 30ml 0.5% ropivacaine
--- NOTE | 2024-05-24 13:28 | W.PM.OPSFHP ---
Same Day Surgery H&P Indication for Procedure/HPI DATE OF PROCEDURE: May 24, 2024 CHIEF COMPLAINT/INDICATIONFOR SURGICAL PROCEDURE: Right shoulder rotator cuff tear, subacromial impingement, biceps tendinitis, AC joint arthritis PREOP DIAGNOSIS: Right shoulder rotator cuff tear, subacromial impingement, biceps tendiniti PLANNED PROCEDURE: Operation Date: 05/24/24 14:05 Proposed Procedures p shoulder diagnostic and surgical arthroscopy(Right) - Jc Caldwell DO s Subacromial Decompression(Right) - Jc Caldwell DO s AC Joint Resection(Right) - Jc Caldwell DO s rotator cuff debridement versus repair(Right) - Jc Caldwell DO s Bicep Tenodesis(Right) - Jc Caldwell DO Medications/Allergies* Home Medications Medication Instructions Recorded Confirmed Type vilazodone 40 mg tablet (Viibryd) 40 mg PO BEDTIME 03/23/22 05/23/24 History multivitamin 1 tab PO QAM 05/19/22 05/23/24 History clonazepam 0.5 mg tablet (Klonopin) 1 mg PO BID 07/02/22 05/23/24 History bupropion HCl 100 mg tablet,12 hr 100 mg PO DAILY 07/09/23 05/23/24 History sustained-release olanzapine 10 mg-samidorphan 10 mg 1 tab PO DAILY 05/23/24 05/23/24 History tablet (Lybalvi) prazosin 5 mg capsule 5 mg PO BEDTIME 05/23/24 05/23/24 History trazodone 50 mg tablet 50 mg PO BEDTIME 05/23/24 05/23/24 History Allergies/Adverse Reactions Allergy/AdvReac Type Severity Reaction Status Date / Time No Known Allergies Allergy Verified 05/24/24 12:05 Current Medications: Generic Name Dose Route Start Last Admin Trade Name Freq PRN Reason Stop Dose Admin Sodium Chloride 1,000 mls @ 30 mls/hr 05/24/24 12:00 05/24/24 12:35 Sodium Chloride 0.9% IV 05/25/24 11:59 30 mls/hr .Q24H MELVA Administration Pertinent History/Comorbid Conditions* Medical History (Updated 05/07/24 @ 17:00 by Jc Caldwell DO) No pertinent past medical history Surgical History (Updated 03/23/22 @ 14:27 by Sallie Nicole MD) Hx of appendectomy Hx of foot surgery Family History (Updated 01/25/23 @ 14:24 by Shilpa Chavez RN) Suicide Denies family history of Colon cancer Ovarian cancer Diabetes Heart disease Hyperlipidemia Breast cancer Hypertension Uterine cancer Thyroid disease Stroke Social History Smoking and tobacco/nicotine status: never used tobacco/nicotine Second hand smoke exposure: No Alcohol intake: never Substance/Drug Use: current Substance/Drug use frequency: daily Lives independently: Yes Household members: significant other and children Marital status: Single Number of children: 2 Highest education level completed: Some College, No Degree service: No Current occupational status: disabled Current gender identity: Female Special luly needs: No Agree to transfusion: Yes Pertinent Exam Findings alert, oriented x 3, operative site marked and procedure specific exam findings Please refer to detailed orthopedic examination on 04/20/2024: Examination right shoulder: Examination right shoulder demonstrates tenderness palpation over the AC joint as well as the anterior aspect of the shoulder over the bicipital groove as well as lateral aspect shoulder. Patient has decreased range of motion secondary to pain. Positive Jobes with weakness, positive [place]'s positive speeds, positive crossover arm Neer's test, positive Brand impingement. No pain with C-spine range of motion, negative Spurling's. Recommendations Surgery/Procedure today Other Plans: Plan proceed to the OR today for right shoulder diagnostic and surgical arthroscopy with subacromial decompression, AC joint resection, rotator cuff debridement versus repair, possible biceps tenodesis. Patient understands the ins and outs of procedure the risk benefits complication alternatives of surgery and through shared decision-making elects proceed with surgical invention. All questions answered at this time. Coding Level of Care Code Acute Code for Scarlett Noel
[2024-05-24] MEDS: ceFAZolin 2,000 MG in sodium chloride 0.9% (plus) 50 ML 100 MG IV (13:47)
[2024-05-24] MEDS: EPINEPHrine 1 mg/mL INJ 2 MG XX (14:34)
--- NOTE | 2024-05-24 15:29 | P.BOP_ITS ---
Date of Procedure: 05/24/2024 Surgeon: cJ Caldwell DO Electrical And Radio Mechanic(s): Gómez Caldwell PA-C Procedure(s) performed: Right shoulder diagnostic and surgical arthroscopy with biceps tenodesis Right shoulder diagnostic and surgical arthroscopy with rotator cuff repair (small) Right shoulder diagnostic and surgical arthroscopy with labral debridement Right shoulder diagnostic and surgical arthroscopy with subacromial decompression (acromioplasty and bursectomy) Right shoulder diagnostic and surgical arthroscopy with acromioclavicular joint resection (distal clavicle excision) Findings of the procedure(s): Patient was found to have an unstable bicep anchor and tearing at the bicep labral complex superiorly underwent a biceps tenodesis, was found to have a small tear of the infraspinatus on the rotator cuff underwent repair without issues or complications rest of the procedure went as planned without issues or complications. Patient placed in an UltraSling taken PACU in stable condition. Estimated blood loss: 1 mL Specimen(s) removed: None Post-operative diagnosis: Right shoulder rotator cuff tear, AC joint arthritis, subacromial impingement, bicep tendon tearing/unstable superior labral bicep anchor complex, labral tearing
--- NOTE | 2024-05-24 15:32 | P.OP_ITS ---
Operative Report Date of procedure: May 24, 2024 Surgeon: Jc Caldwell DO Assistant Superintendent For Curriculum: Gómez Caldwell PA-C: PA was necessary for assistance in this case with shoulder positioning to execute the procedure, assistance with instrumentation, as well as implant fixation when necessary, assist with wound closure and dressing application. Procedure: Preop Dx: Right shoulder rotator cuff tear, subacromial impingement, biceps tendinitis, AC joint arthritis Post-op diagnosis: Right shoulder rotator cuff tear, AC joint arthritis, subacromial impingement, bicep tendon tearing/unstable superior labral bicep anchor complex, labral tearing Procedure done: Right shoulder diagnostic and surgical arthroscopy with biceps tenodesis Right shoulder diagnostic and surgical arthroscopy with rotator cuff repair (small) Right shoulder diagnostic and surgical arthroscopy with labral debridement Right shoulder diagnostic and surgical arthroscopy with subacromial decompression (acromioplasty and bursectomy) Right shoulder diagnostic and surgical arthroscopy with acromioclavicular joint resection (distal clavicle excision) Surgeon: Jc Caldwell DO Estimated blood loss: 1mL IV fluids: See anesthesia record Implants: Arthrex 4.75 swivel lock Arthrex scorpion and suture tape Bicep tenodesis loop and tack kit Arthrex Complications: None Condition: stable Disposition: same day Brief History: Patient been seen and worked up in the outpatient setting for?right?shoulder?pain.? Pt had an MRI which showed findings below.? Patient's failed conservative treatment and has weakness.? We talked about treatment options far as nonoperative and operative intervention..? We talked about risk benefits complication alternatives surgical nonsurgical treatment options.? Understanding risk of surgery he agrees to proceed with surgical intervention.? All questions have been answered at this time.? Patient elects proceed with surgery and consent obtained for right shoulder diagnostic and surgical arthroscopy with subacromial decompression, AC joint resection, rotator cuff debridement versus repair, possible biceps tenodesis MR/MR shoulder RT wo/w con [id number] IMPRESSION: 1. Moderate AC joint arthritis with mild enhancement. 2. Small insertion site tear of the infraspinatus tendon with interstitial extension. 3. No rotator cuff muscle atrophy or edema. 4. Mild subacromial impingement by downsloping acromion. Procedure: Patient seen evaluated in the preoperative holding area.? Consent reviewed and signed with patient.? Once again reviewed patient's MRI results as well as? planned surgical intervention.? Correct extremity marked.? Patient seen evaluated by anesthesia department received regional anesthesia.? Once ready for surgery was taken back to the operative suite.? Patient then subsequently underwent anesthesia per the anesthesia department was transported onto the OR table.? Patient was then placed into a lateral decubitus position with a beanbag and was appropriately secured to the bed.? All bony prominences well-padded.? Patient then had the?right?upper extremity was then prepped and draped in standard orthopedic fashion.? Patient received appropriate preoperative antibiotics.? Final timeout performed. The?right?upper extremity was then held in hanging from traction utilizing sterile technique.? Next started with standard diagnostic and surgical arthroscopy with posterior portal position introduced arthroscope into the glenohumeral joint.? Visualized the glenohumeral joint I then introduced a spinal needle within the rotator cuff interval to confirm appropriate anterior portal placement.? Once this was confirmed I then made my small incision and then introduced my arthroscopic shaver into the glenohumeral joint.? After flushing the joint fluid, was clearly evident patient had biceps tendon tearing as well as Superior labral tear. Patient had appreciable unstable biceps anchor most pronounced in the superior labrum. Given there appears to be healthy intra-articular tendon plan was for an intra-articular biceps tenodesis at the superior portion as it enters the intertubercular groove. Thermal wand introduced into the rotator interval. I then release of the rotator interval to have appropriate visualization and the ability to perform biceps tenodesis. At this point I established a purple passport cannula which was introduced. Next I performed an Arthrex loop and tap biceps tenodesis. Passer was then made around the tendon luggage tag stitch around and then thru the tendon and around per Arthrex protocl. I then utilized a thermal wand to release the biceps tendon at the anchor to perform with tenotomy. I then loaded with suture onto an Arthrex 4.75 swivel lock suture anchor. A punch was then placed in appropriate position at the entry point into the intertubercular groove just superior to the subscapularis tendon. Punch was then introduced to the appropriate depth. The suture loaded on the swivel lock was then advanced held under appropriate tension and shoulder lock anchor was then advanced and had excellent fixation. Excess suture was then cut biceps tenodesis was complete. I then utilized a thermal wand to seal the edges of the superior labrum. Next I evaluated the subscapularis tendon which was intact and no evidence of tear. ?Next there was significant labral tearing at biceps anchor and circumferential.? ? I then subsequently utilized a a arthroscopic shaver and thermal wand to perform a labral debridement.? This point time I then visualized the glenohumeral joint.? The glenohumeral joint was found to have grade 1-2? chondromalacia throughout.? Axillary pouch was free of loose bodies from viewing the posterior portal.? Next a visualized the rotator cuff superiorly and there was found to be a small undersurface tearing of the infraspinatus tendon.? I utilized a spinal needle to della this location.?? This completed my work within the glenohumeral joint all fluid was suctioned free of the joint.? ?Next I reintroduced the arthroscope posteriorly.? And went to the subacromial space.? I established my lateral working portal at the site of which my spinal needle was marking of the rotator cuff tear.? Thermal wand was then introduced laterally and then I subsequently performed extensive bursectomy of the subacromial space.? Patient had a large anterior bone spur.? At this point time I proceeded with my AC joint resection thermal wand was used and track to the anterior edge of the acromion and then tracked all the way to the AC joint.? Once identified the AC joint this was very arthritic in nature.? Thermal wand was placed anteriorly to establish appropriate plane for AC joint resection.? Once appropriate margins and anterior inferior and anterior capsule was released I then introduced arthroscopic shaver and a bur and performed AC joint resection of both the acromion to cope plane at the AC joint and a distal clavicle resect ion was then performed totaling 1 cm in size and was confirmed.? This completed my AC joint resection and I then introduced the arthroscopic shaver laterally while continuing to view posteriorly.? I then performed an acromioplasty to complete my subacromial decompression prior to fixing the rotator cuff tear.? Next the arthroscopic shaver was then used previous spinal needle spot that is marked the small hole in the rotator cuff this was consistent with a small full- thickness tear.? Given the small size this did not need a medial and lateral row configuration as result my plan was for a horizontal mattress stitch with a single lateral row anchor.? As result I loaded and Arthrex scorpion with fiber tape and subsequently.? A horizontal mattress purchase appropriately spaced to the small tear of the infraspinatus tendon.? At this point in time and then introduced a shaver to debride the rotator cuff footprint and decorticate the footprint in preparation for repair, next I marked by swivel lock position.? Fiber tape was then loaded into a 4.75 swivel lock I then subsequently punched and then subsequently placement 4.75 swivel lock while maintaining appropriate tension and repair of rotator cuff and this was advanced with excellent fixation I then had a final confirmation of appropriate repair of the infraspinatus rotator cuff tendon tear.? Sutures were then cut with an arthroscopic suture cutter and subsequently evaluated the rotator cuff repair.? Repair was found to be satisfactory?shoulder?was taken through range of motion and the repair moved as a unit with no evidence of loss of fixation. ?I then switched the arthroscope to the lateral portal to confirm this tension- free repair.? I took the?shoulder?through range of motion and the rotator cuff repair was stable and moved as a unit. ?Next I then introduced the arthroscopic shaver posteriorly to complete my subacromial decompression appropriate complaining all the way up to the lateral edge of the acromion.? This completed the surgery.? All fluid was suctioned from the?shoulder.? All instruments were removed.? The lateral incision was then closed with nylon stitches.? As well as the portal sites closed with portal nylon stitches.? Xeroform 4 x 4's ABD and tape was then applied to the?right?shoulder?and was placed into a?shoulder?abduction pillow sling for rotator cuff repair.? Patient was then awakened from anesthesia and then taken back to PACU in stable condition.? Patient tolerated procedure without any issues. Disposition: Patient taken back in stable condition recovering well.? Dressings on in place clean dry and intact.? Will be nonweightbearing to the?right?upper extremity.? Follow rotator cuff repair protocol.? Patient to follow-up with me in the office in 2 weeks.? Patient will receive appropriate discharge instruction as well as pain medication postoperatively.? All questions answered.? We will contact the office for any questions or concerns.
--- NOTE | 2024-05-24 15:51 | PM.PACU ---
PACU note Narrative: Patient is a 43-year-old female who just underwent a right shoulder diagnostic and surgical arthroscopy. Patient transferred to PACU in stable condition. Pain is well controlled. shoulder Dressing on , dry and in place. Patient's operative arm is in a shoulder immobilizer. Patient is awake and alert and able to respond to my questions accordingly. Patient's fingers are warm with good perfusion. Normal cap refill under 2 seconds. Unable to assess further range of motion in arm due to sling. Unable to assess sensation due to residual localized anesthetic. Exam: awake Disposition: discharged
[2024-05-24] MEDS: HYDROcodone-acetaminophen 7.5-325 mg Tablet 1 TAB PO (16:48)
--- NOTE | 2024-05-24 17:08 | ANE.PACU2 ---
Inpatient post-anesthesia follow up: Airway intact: Yes Vital signs: Temperature 97.4 F Pulse Rate 61 Respiratory Rate 18 Blood Pressure 155/75 Pulse Oximetry 95 Oxygen Delivery Me thod Room Air Oxygen Flow Rate Fraction of Inspir ed Oxygen Hydration adequate: Yes Nausea and vomiting: No Pain level: 1 Mental status: Baseline
== END 2024-05-24 17:08 | disposition home or self-care (01) ==
PROVIDERS: PCP Internal Medicine; Visit Provider Student in an Organized Health Care Education/Training Program
PROC: (CPT 29805; principal; 2024-05-24 13:45)
PROC: (CPT 29826; 2024-05-24 13:45)
PROC: 0RSG0ZZ Reposition Right Acromioclavicular Joint, Open Approach (ICD-10-PCS; CPT 29827; 2024-05-24 13:45)
PROC: (CPT 29827; 2024-05-24 13:45)
PROC: (CPT 23430; 2024-05-24 13:45)
PROC: (CPT 29827; 2024-05-24 13:45)
DX: M75.101 Unspecified rotator cuff tear or rupture of right shoulder, not specified as traumatic (principal); M25.811 Other specified joint disorders, right shoulder; M75.21 Bicipital tendinitis, right shoulder; M19.011 Primary osteoarthritis, right shoulder
CPT/HCPCS: 29827; 29824; 29826; 29828; C1713; J0131; J0171; J0690; J1100; J1885; J2405; J2704; J3010; J3490; J7030

== ENCOUNTER → 2024-06-15 07:56 | Outpatient (BNVA) | payer MEDICARE, MEDICAID, SELFPAY | PROVIDERS: PCP Internal Medicine; Visit Provider Physician Assistant | DX: Z98.890 Other specified postprocedural states (principal) | CPT/HCPCS: 99024 ==

== ENCOUNTER → 2024-07-06 10:45 | Outpatient (BNVA) | payer MEDICARE, SELFPAY | PROVIDERS: PCP Internal Medicine; Visit Provider Physician Assistant | DX: Z98.890 Other specified postprocedural states (principal) | CPT/HCPCS: 99024 ==

== ENCOUNTER 2024-08-10 19:36 | Inpatient (IN) | payer MEDICARE, SELFPAY ==
[2024-08-10 19:38] VITALS: BP 130/84; PULSE 82; RESP 18; TEMP 36.6; O2SAT 97; BMI 35.7
--- NOTE | 2024-08-10 19:44 | W.ED.PSYCHS ---
HPI - Psych General: Chief Complaint: Psychiatric Symptoms Stated Complaint: SI Time Seen by Provider: 08/10/24 19:37 Source: patient and EMS Mode of arrival: EMS Limitations: no limitations History of Present Illness: 43-year-old female who states that she has been having increased depression states she has not been taking her meds she has been having suicidal ideations she states that she just no longer wants to live and does not want to kill herself she was sent here by [facility] [place] has had affidavits filled out. Denies any worse improved factors. Associated symptoms: Reports depression and suicidal ideation Related Data Home Medications ?Medication ?Instructions ?Recorded ?Confirmed vilazodone 40 mg tablet (Viibryd) 40 mg PO BEDTIME 03/23/22 07/06/24 multivitamin 1 tab PO QAM 05/19/22 07/06/24 clonazepam 0.5 mg tablet (Klonopin) 1 mg PO BID 07/02/22 07/06/24 bupropion HCl 100 mg tablet,12 hr 100 mg PO DAILY 07/09/23 07/06/24 sustained-release olanzapine 10 mg-samidorphan 10 mg 1 tab PO DAILY 05/23/24 07/06/24 tablet (Lybalvi) prazosin 5 mg capsule 5 mg PO BEDTIME 05/23/24 07/06/24 trazodone 50 mg tablet 50 mg PO BEDTIME 05/23/24 07/06/24 Previous Rx's ?Medication ?Instructions ?Recorded ibuprofen 800 mg tablet 800 mg PO Q8H #60 tabs 02/18/24 hydrocodone 7.5 mg-acetaminophen 1 tab PO Q6H PRN pain 5 days #20 07/06/24 325 mg tablet tabs Allergies Allergy/AdvReac Type Severity Reaction Status Date / Time No Known Allergies Allergy Verified 08/10/24 19:41 Review of Systems Const: Denies: fever(s), chills, body aches or change in appetite ENMT: Denies: throat pain or dental pain Card: Denies: chest pain Resp: Denies: dyspnea GI: Denies: abdominal pain, nausea, vomiting or diarrhea Musc: Denies: neck pain or back pain Skin/Breast: Denies: rash Neuro: Denies: headache(s) Psych: Reports: depression and suicidal ideation [facility] ED PFSH: Medical History No pertinent past medical history Surgical History Hx of appendectomy Hx of foot surgery Family History Other Suicide Denies family history of Colon cancer Ovarian cancer Diabetes Heart disease Hyperlipidemia Breast cancer Hypertension Uterine cancer Thyroid disease Stroke Social History Smoking and tobacco/nicotine status: never used tobacco/nicotine Second hand smoke exposure: No Alcohol intake: never Substance/Drug Use: current Substance/Drug use frequency: daily Lives independently: Yes Household members: significant other and children Marital status: Single Number of children: 2 Highest education level completed: Some College, No Degree service: No Current occupational status: disabled Current gender identity: Female Special luly needs: No Agree to transfusion: Yes Female Reproductive History: Date of last menstrual period: 07/27/24 Physical Exam Const: COMMON NORMALS: no acute distress, patient oriented x3 and healthy appearing HENMT: COMMON NORMALS: normocephalic and atraumatic HEAD & SCALP: normocephalic and atraumatic Eye: COMMON NORMALS: conjunctivae normal CONJUNCTIVA: Yes conjunctivae normal Neck/C-Spine: COMMON NORMALS: full ROM and supple Chest: COMMONS NORMALS: normal inspection of the chest Resp: COMMON NORMALS: normal respiratory effort Cardio: COMMON NORMALS: regular rate RATE: regular rate Extremity: COMMON NORMALS: normal to inspection and full ROM Neuro: COMMON NORMALS: patient oriented x3, moves all extremities and no focal motor deficits Psych: COMMON NORMALS: mental status grossly normal MOOD & AFFECT: Yes depressed mood THOUGHT CONTENT: Yes Suicidality present Skin: COMMON NORMALS: no rashes or lesions noted and no wounds GENERAL SKIN EXAM: no rashes or lesions noted Course Vital Signs: Vital signs: Vital Signs Temperature 97.8 F 08/10/24 19:38 Pulse Rate 82 08/10/24 19:38 Respiratory Rate 18 08/10/24 19:38 Blood Pressure 130/84 08/10/24 19:38 Pulse Oximetry 97 08/10/24 19:38 Oxygen Delivery Me thod Room Air 08/10/24 19:38 MDM - Psych Medical Decision Making Patient presents here with suicidal ideation she is placed on a 96-hour hold she is medically cleared spoke to psychiatrist will admit. Medical Records I reviewed the patient's medical records. Lab Data I reviewed the patient's lab results. 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
--- NOTE | 2024-08-10 20:06 | PC.NURSE ---
96 Hour Involuntary Hold Patient Rights have been reviewed with the patient and a copy of the same has been provided to her. Stiff Leg Operator Carmen Buchanan was present at bedside at the time of presentatio of Rights.
[2024-08-10 21:14] LABS: Basophils % 0.2 %; Eosinophils # 0.1 10^3/uL (0.0-0.8); Eosinophils % 0.5 %; Hematocrit 39.1 % (36-47); Lymphocytes # 2.3 10^3/uL (0.8-4.8); Lymphocytes % 23.7 %; Mean Corpuscular HGB Conc 33.8 g/dL (30-55); Mean Corpuscular Hemoglobin 30.1 pg (27-33); Mean Corpuscular Volume 89.1 fl (85-98); Mean Platelet Volume 9.8 fL (7.4-10.4); Monocytes # 1.1 10^3/uL (0.2-0.9); Neutrophils # 6.28 10^3/uL (1.8-7.7); Neutrophils % 64.3 %; Nucleated Red Blood Cells % 0 %; Platelet Count 326 10^3/cmm (157-399); Red Blood Count 4.39 10^6/uL (3.85-5.65); Red Cell Distribution Width 13.1 % (12.1-15.1); White Blood Count 9.77 10^3/uL (3.29-11.43)
[2024-08-10 21:40] LABS: Alanine Aminotransferase 13 U/L (0-33); Albumin Level 4.7 g/dL (3.5-5.2); Alkaline Phosphatase 94 U/L (35-105); Anion Gap 14.9 (5-19); Aspartate Amino Transferase 14 U/L (0-32); Blood Urea Nitrogen 13 mg/dL (6-20); Calcium 9.7 mg/dL (8.5-10.5); Carbon Dioxide 26 mmol/L (22-29); Chloride 99 mmol/L (98-107); Creatinine Clr Calc Pharmacy 120.9979; Globulin 3.2 g/dL (1.3-4.6); Glomerular Filtration Rate 91.8 mL/min (90-130); Glucose 107 mg/dL (65-115); Osmolality Calculated 283 mOsm/kg (285-295); Potassium 3.9 mmol/L (3.5-5.1); Salicylate 0.7 mg/dL (3-10); Sodium 136 mmol/L (136-145); Total Bilirubin 0.4 mg/dL (0.15-1.2); Total Protein 7.9 g/dL (6.6-8.7)
[2024-08-10 21:42] LABS: Acetaminophen < 5.0 ug/mL (10-30); Alcohol Level < 10 mg/dL (0-10)
--- NOTE | 2024-08-10 21:55 | PC.NURSE ---
Report called to Krishna KNOTT in NPU. All questions and concerns were addressed at time of report.
[2024-08-10 22:08] VITALS: BP 124/81; PULSE 83; RESP 16; TEMP 36.9; O2SAT 99
[2024-08-10] MEDS: ondansetron 4 MG Tablet PO (22:33)
[2024-08-10 22:41] LABS: HCG Qualitative Urine. Negative (Negative)
[2024-08-10 23:16] LABS: Amphetamines Screen Urine Negative (Negative); Barbiturates Screen Urine Negative (Negative); Benzodiazepines Screen Urine Negative (Negative); Cocaine Screen Urine Negative (Negative); Opiate Screen Urine Negative (Negative); PCP Screen Urine Negative (Negative); THC Screen Urine Positive (Negative)
[2024-08-10] MEDS: trazodone 50 mg Tablet PO (23:30)
[2024-08-10] MEDS: prazosin 5 mg Capsule PO (23:30)
[2024-08-10] MEDS: OLANZapine 5 mg ODT PO (23:30)
[2024-08-10] MEDS: CLONazepam 0.5 mg Tablet 2 MG PO (23:30)
[2024-08-10] MEDS: ibuprofen 800 mg tablet PO (23:31)
[2024-08-11 06:00] VITALS: BP 114/70; PULSE 62; RESP 18; O2SAT 96
[2024-08-11] MEDS: ondansetron 4 MG Tablet PO ×2 (13:19→22:10)
[2024-08-11] MEDS: multivitamin therapeutic Tablet 1 TAB PO (13:31)
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
[2024-08-11 14:00] VITALS: BP 133/78; PULSE 59; RESP 18; TEMP 37.4; O2SAT 97
--- NOTE | 2024-08-11 17:21 | PC.OT ---
OT eval attempted with pt not coming to group; will attempt tomorrow.
[2024-08-11] MEDS: promethazine 25 mg/mL SDV 1 mL 50 MG IM (18:22)
[2024-08-11] MEDS: buPROPion SR (12 HR) 150 mg Tablet PO (18:22)
[2024-08-11] MEDS: OLANZapine 5 mg ODT PO (18:22)
--- NOTE | 2024-08-11 19:06 | PC.NURSE ---
Signee asked pt. if she was able to get someone to bring her viibryd medication to the facility. Pt. stated no she had no one to bring it. Signee called Dr. Proctor to let him know. wants to see if pharmacy can do meds to beds tomorrow for this medication. Passing information onto HS shift.
[2024-08-11 22:00] VITALS: BP 139/93; PULSE 73; RESP 16; TEMP 36.7; O2SAT 95
[2024-08-11] MEDS: ibuprofen 800 mg tablet PO (22:09)
[2024-08-11] MEDS: CLONazepam 0.5 mg Tablet 2 MG PO (22:09)
[2024-08-11] MEDS: hyDROXYzine 25 mg Capsule 50 MG PO (22:10)
[2024-08-11] MEDS: trazodone 50 mg Tablet PO (22:10)
[2024-08-12 06:00] VITALS: BP 113/69; PULSE 65; RESP 16; TEMP 36.7; O2SAT 95
[2024-08-12] MEDS: multivitamin therapeutic Tablet 1 TAB PO (08:32)
[2024-08-12] MEDS: buPROPion XL (24 HR) 150 mg Tablet PO (08:32)
[2024-08-12] MEDS: ondansetron 4 MG Tablet PO (08:36)
--- NOTE | 2024-08-12 08:37 | PC.NURSE ---
PRN ZOFRAN 4 MG GIVEN PO PER PT C/O STATED NAUSEA
--- NOTE | 2024-08-12 11:33 | P.NPUPN_ITS ---
Subjective NPU 2 Subjective: Patient presented today reporting that she is feeling better with the Wellbutrin back on track. She reported that she was open to the plan of restarting the Viibryd and allowing herself to equilibrate first prior to trying to change the medication again. She is not returning to her previous provider so we talked about part of the challenge of discharge before Wednesday is related to making sure she has appropriate follow-up. She denied any new issues but still is having some instability from the rapid medication changes. Mental Status Exam 2 MSE Comments: This is an obese white female with hirsutism of the in hospital scrubs with limited grooming and eye contact. No abnormal movements except for mild psychomotor agitation. Cooperative with exam in mild to moderate distress. Speech was slightly increased rate and normal volume. Mood described as feeling a little better but still wanting to leave, affect is congruent but less irritable. Thought process, organized. Thought content: patient denied current suicidal ideation or homicidal ideation, no delusions reported or noted and denies auditory or visual hallucinations. Attention and concentration are intact and memory appeared reliable but none were formally tested. She is alert and oriented times three. Insight and judgment are limited. Impulse control is impaired. Vitals/I&O/Wt Last Vital Signs Temp 98.1 F 08/12/24 06:00 Pulse 65 08/12/24 06:00 Resp 16 08/12/24 06:00 BP 113/69 08/12/24 06:00 Pulse Ox 95 08/12/24 06:00 O2 Del Method Room Air 08/12/24 06:00 Weight last 48 hrs Weight 97.522 kg Data NPU 08/10/24 21:03 08/10/24 21:03 A&P Assessment and plan (1) Suicidal ideation: (2) Hirsutism: (3) Hip pain: (4) PTSD (post-traumatic stress disorder): (5) Major depressive disorder: (6) Borderline personality disorder: Plan This is a 43 year old white woman with a history of trauma, suicidal ideation and genetic loading for mental health, addiction and lethality issues who presents with recent suicidal ideation reporting she recently started discontinuing all of her medications in a very rapid fashion that is led to her having diarrhea and overall difficulty functioning. However she was focused on being able to discharge and get out of here sooner rather than later. 1. Continue current medications. Start Wellbutrin XL 150 mg p.o. every morning in the morning and give Wellbutrin SR 150 mg when available. Will try to restart Viibryd in the morning. We will try to get access to her Viibryd by tomorrow as it is not on formulary and she does not have access to her home supply. 2. Encourage individual, group and milieu therapy. 3. Continue q-15 minute check for safety. 4. Encourage sober living treatment after discharge at the highest level of care to which she is willing to commit. 5. Get collateral information. 6. Evaluate against the backdrop of the 96-hour hold. PDMP PDMP Reviewed: Not Reviewed Involuntary Hold Information 2 96 Hour Hold: 96 Hour Involuntary Admission: No Attestations NPU 2 Medical Necessity Statement*: Inpatient hospitalization is medically necessary and the clinically appropriate intervention at this time. We will monitor medications and make changes as indicated. Likely length of stay is 2-4 days. Coding Level of Care Code Acute Code for [facility] Diagnoses Suicidal ideation R45.851 Hirsutism L68.0 Hip pain M25.559 PTSD (post-traumatic stress disorder) F43.10 Major depressive disorder F32.9 Borderline personality disorder F60.3
[2024-08-12 13:14] VITALS: BP 112/63; PULSE 79; RESP 18; TEMP 37; O2SAT 97
[2024-08-12 20:13] VITALS: BP 117/81; PULSE 93; RESP 18; TEMP 37.1; O2SAT 97
[2024-08-12] MEDS: ibuprofen 800 mg tablet PO (21:10)
[2024-08-12] MEDS: hyDROXYzine 25 mg Capsule 50 MG PO (21:10)
[2024-08-12] MEDS: trazodone 50 mg Tablet PO ×2 (21:10→22:47)
[2024-08-12] MEDS: CLONazepam 0.5 mg Tablet 2 MG PO (21:11)
[2024-08-13] MEDS: trazodone 50 mg Tablet PO ×2 (00:02→20:14)
[2024-08-13] MEDS: OLANZapine 5 mg ODT PO (00:02)
[2024-08-13] MEDS: haloperidol 5 mg Tablet PO (01:43)
[2024-08-13] MEDS: hyDROXYzine 25 mg Capsule 50 MG PO (02:36)
[2024-08-13 06:00] VITALS: RESP 16
[2024-08-13] MEDS: buPROPion XL (24 HR) 150 mg Tablet PO (08:52)
[2024-08-13] MEDS: multivitamin therapeutic Tablet 1 TAB PO (08:52)
--- NOTE | 2024-08-13 10:10 | PC.NURSE ---
UP TO GET MEDICATIONS, DECLINED ANXIETY MEDICATIONS. REPORTS SHE DID NOT SLEEP WELL LAST NIGHT AND ACCORDING TO NIGHT NURSE REQUIRED SEVERAL PRN'S FOR SLEEP AND ANXIETY. DENIES SI/HI AND AVH AT THIS TIME. RATES ANXIETY AND DEPRESSION 5/10. AFFECT IS FLAT AND SHE IS GUARDED. SUPPORT VOCIED.
[2024-08-13 14:00] VITALS: BP 138/79; PULSE 76; RESP 18; TEMP 36.9; O2SAT 99
--- NOTE | 2024-08-13 15:24 | P.NPUPN_ITS ---
Subjective NPU 2 Subjective: Patient presented today reporting she understands the reasoning behind keeping her but continued to report a desire to go home sooner rather than later. We discussed the likelihood of discharge tomorrow and philosophically what we would recommend from the standpoint of her and medication moving forward. She was agreeable with that plan as well as the social work team getting her appointments with an ultimate plan of changing providers when they are in tomorrow. We also discussed the crisis stabilization center as a vehicle to manage some of her medication concerns prior to being transferred to an appropriate provider at [facility]. She continued to report the side effects she has been reporting that are related to her discontinuing her home medications abruptly. Mental Status Exam 2 MSE Comments: This is an obese white female with hirsutism of the in hospital scrubs with limited grooming and eye contact. No abnormal movements except for mild psychomotor agitation. Cooperative with exam in mild to moderate distress. Speech was slightly increased rate and normal volume. Mood described as feeling a little better but still wanting to leave, affect is congruent but less irritable. Thought process, organized. Thought content: patient denied current suicidal ideation or homicidal ideation, no delusions reported or noted and denies auditory or visual hallucinations. Attention and concentration are intact and memory appeared reliable but none were formally tested. She is alert and oriented times three. Insight and judgment are limited. Impulse control is impaired. Vitals/I&O/Wt Last Vital Signs Temp 98.8 F 08/12/24 20:13 Pulse 93 08/12/24 20:13 Resp 16 08/13/24 06:00 BP 117/81 08/12/24 20:13 Pulse Ox 97 08/12/24 20:13 O2 Del Method Room Air 08/12/24 13:14 Weight last 48 hrs Weight 115.757 kg Data NPU 08/10/24 21:03 08/10/24 21:03 A&P Assessment and plan (1) Suicidal ideation: (2) Hirsutism: (3) Hip pain: (4) PTSD (post-traumatic stress disorder): (5) Major depressive disorder: (6) Borderline personality disorder: Plan This is a 43 year old white woman with a history of trauma, suicidal ideation and genetic loading for mental health, addiction and lethality issues who presents with recent suicidal ideation reporting she recently started discontinuing all of her medications in a very rapid fashion that is led to her having diarrhea and overall difficulty functioning. However she was focused on being able to discharge and get out of here sooner rather than later. 1. Continue current medications. Start Wellbutrin XL 150 mg p.o. every morning in the morning and give Wellbutrin SR 150 mg when available. Will try to restart Viibryd in the morning. We will try to get access to her Viibryd by tomorrow as it is not on formulary and she does not have access to her home supply. She has agreed to remain on the Wellbutrin and Viibryd 40 mg daily with an increase in her trazodone to 100 mg at night. We will likely discharge on these doses with appropriate follow-up. 2. Encourage individual, group and milieu therapy. 3. Continue q-15 minute check for safety. 4. Encourage sober living treatment after discharge at the highest level of care to which she is willing to commit. 5. Get collateral information. 6. Evaluate against the backdrop of the 96-hour hold. PDMP PDMP Reviewed: Not Reviewed Involuntary Hold Information 2 96 Hour Hold: 96 Hour Involuntary Admission: No Attestations NPU 2 Medical Necessity Statement*: Inpatient hospitalization is medically necessary and the clinically appropriate intervention at this time. We will monitor medications and make changes as indicated. Likely length of stay is 1-3 days. Coding Level of Care Code Acute Code for g Fwd Diagnoses Suicidal ideation R45.851 Hirsutism L68.0 Hip pain M25.559 PTSD (post-traumatic stress disorder) F43.10 Major depressive disorder F32.9 Borderline personality disorder F60.3
[2024-08-13 19:57] VITALS: BP 124/86; PULSE 108; RESP 18; TEMP 37.1; O2SAT 97
[2024-08-13] MEDS: CLONazepam 0.5 mg Tablet 2 MG PO (20:14)
[2024-08-13] MEDS: ibuprofen 800 mg tablet PO (20:14)
[2024-08-14 06:00] VITALS: BP 119/81; PULSE 60; RESP 18; TEMP 36.6; O2SAT 96
[2024-08-14] MEDS: buPROPion XL (24 HR) 150 mg Tablet PO (08:09)
[2024-08-14] MEDS: multivitamin therapeutic Tablet 1 TAB PO (08:09)
[2024-08-14 14:00] VITALS: BP 102/62; PULSE 81; RESP 17; TEMP 36.7; O2SAT 95
--- NOTE | 2024-08-14 14:02 | W.PM.NPUDCS ---
Diagnoses at Discharge Discharge Diagnosis (1) Suicidal ideation: Status: Resolved (2) Hirsutism: Status: Acute (3) Hip pain: Status: Resolved (4) PTSD (post-traumatic stress disorder): Status: Acute (5) Major depressive disorder: Status: Acute (6) Borderline personality disorder: Status: Acute Reason for Visit Reason for Visit: SI Involuntary Hold Information 96 Hour Hold: 96 Hour Involuntary Admission: No Mental Status Exam MSE Comments: This is an obese white female with hirsutism of the in hospital scrubs with limited grooming and eye contact. No abnormal movements except for mild psychomotor agitation. Cooperative with exam in mild to moderate distress. Speech was slightly increased rate and normal volume. Mood described as feeling a little better but still wanting to leave, affect is congruent but less irritable. Thought process, organized. Thought content: patient denied current suicidal ideation or homicidal ideation, no delusions reported or noted and denies auditory or visual hallucinations. Attention and concentration are intact and memory appeared reliable but none were formally tested. She is alert and oriented times three. Insight and judgment are limited. Impulse control is impaired. Discharge Data Studies Completed and Pending: Laboratory Results WBC 9.77 10^3/uL (3.2 9-11.43) 08/10/24 21:03 RBC 4.39 10^6/uL (3.8 5-5.65) 08/10/24 21:03 Hgb 13.20 g/dL (11.27 -16.99) 08/10/24 21:03 Hct 39.1 % (36-47) 08/10/24 21:03 MCV 89.1 fl (85-98) 08/10/24 21:03 MCH 30.1 pg (27-33) 08/10/24 21:03 MCHC 33.8 g/dL (30-55) 08/10/24 21:03 RDW 13.1 % (12.1-15.1 ) 08/10/24 21:03 Plt Count 326 10^3/cmm (157 -399) 08/10/24 21:03 MPV 9.8 fL (7.4-10.4) 08/10/24 21:03 Neut % (Auto) 64.3 % 08/10/24 21:03 Lymph % (Auto) 23.7 % 08/10/24 21:03 [place] % (Auto) 11.0 % 08/10/24 21:03 Eos % (Auto) 0.5 % 08/10/24 21:03 Baso % (Auto) 0.2 % 08/10/24 21:03 Neut # (Auto) 6.28 10^3/uL (1.8 -7.7) 08/10/24 21:03 Lymph # (Auto) 2.3 10^3/uL (0.8- 4.8) 08/10/24 21:03 [place] # (Auto) 1.1 10^3/uL (0.2- 0.9) H 08/10/24 21:03 Eos # (Auto) 0.1 10^3/uL (0.0- 0.8) 08/10/24 21:03 Baso # (Auto) 0.0 10^3/uL (0.0- 0.1) 08/10/24 21:03 Nucleated RBC % (a uto) 0 % 08/10/24 21:03 Nucleated RBCs # 0.0 /100WBC 08/10/24 21:03 Sodium 136 mmol/L (136-1 45) 08/10/24 21:03 Potassium 3.9 mmol/L (3.5-5 .1) 08/10/24 21:03 Chloride 99 mmol/L (98-107 ) 08/10/24 21:03 Carbon Dioxide 26 mmol/L (22-29) 08/10/24 21:03 Anion Gap 14.9 (5-19) 08/10/24 21:03 BUN 13 mg/dL (6-20) 08/10/24 21:03 Creatinine 0.7 mg/dL (0.5-0. 9) 08/10/24 21:03 GFR Calculation 91.8 mL/min (90-1 30) 08/10/24 21:03 Glucose 107 mg/dL (65-115 ) 08/10/24 21:03 Calculated Osmolal ity 283 mOsm/kg (285- 295) L 08/10/24 21:03 Calcium 9.7 mg/dL (8.5-10 .5) 08/10/24 21:03 Total Bilirubin 0.4 mg/dL (0.15-1 .2) 08/10/24 21:03 AST 14 U/L (0-32) 08/10/24 21:03 ALT 13 U/L (0-33) 08/10/24 21:03 Alkaline Phosphata se 94 U/L (35-105) 08/10/24 21:03 Total Protein 7.9 g/dL (6.6-8.7 ) 08/10/24 21:03 Albumin 4.7 g/dL (3.5-5.2 ) 08/10/24 21:03 Globulin 3.2 g/dL (1.3-4.6 ) 08/10/24 21:03 HCG, Qual Negative (Negati ve) 08/10/24 22:24 Salicylates 0.7 mg/dL (3-10) L 08/10/24 21:03 Urine Opiates Scre en Negative ng/mL (N egative) 08/10/24 22:24 Acetaminophen < 5.0 ug/mL (10-3 0) L 08/10/24 21:03 Ur Barbiturates Sc reen Negative ng/mL (N egative) 08/10/24 22:24 Ur Phencyclidine S crn Negative ng/mL (N egative) 08/10/24 22:24 Ur Amphetamines Sc reen Negative ng/mL (N egative) 08/10/24 22:24 U Benzodiazepines Scrn Negative ng/mL (N egative) 08/10/24 22:24 Urine Cocaine Scre en Negative ng/mL (N egative) 08/10/24 22:24 U Marijuana (THC) Screen Positive ng/mL (N egative) H 08/10/24 22:24 Ethyl Alcohol < 10 mg/dL (0-10) 08/10/24 21:03 Vitals: Last Vital Signs Temp 97.9 F 08/14/24 06:00 Pulse 60 08/14/24 06:00 Resp 18 08/14/24 06:00 BP 119/81 08/14/24 06:00 Pulse Ox 96 08/14/24 06:00 O2 Del Method Room Air 08/14/24 06:00 Discharge Plan Discharge Patient Disposition: Home Condition: Stable Prescriptions: New trazodone 50 mg Tablet 100 mg PO BEDTIME 30 Days Qty: 60 1RF bupropion HCl 150 mg Tablet Extended Release 24 Hr 150 mg PO DAILY 30 Days Qty: 30 1RF Continued clonazepam [Klonopin] 0.5 mg tablet 2 mg PO BEDTIME multivitamin Tablet 1 tab PO DAILY ibuprofen 800 mg tablet 800 mg PO BEDTIME vilazodone 40 mg tablet 40 mg PO BEDTIME 30 Days Qty: 30 1RF Rx Instructions: must administer with a meal/food Discontinued bupropion HCl 100 mg tablet sustained-release 12 hr 450 mg PO DAILY trazodone 50 mg Tablet 50 mg PO BEDTIME prazosin 5 mg Capsule 5 mg PO BEDTIME Lybalvi 10-10 mg Tablet 1 tab PO DAILY Discharge Orders: Discharge Order (Routine); Ordered 08/14/24 Ordered By: Monroe Proctor Referrals: Tonie Meyers LPC [Other] [facility] [Outside] - 08/24/24 8:30 am (Assessment for services with Nicolas Breaux ) Nicolas Gonzalez MD [Primary Care Provider] - Discharge Diet: Regular Discharge Activity: Resume usual activity Patient Instructions: Stress (DC), Depression (DC), Anxiety (DC), Depression in Older Adults (DC), Opioid Safety Discharge Attestations NPU Time Spent in Discharge Care*: less than 30 min Specific Discharge Activities: Specific discharge activities: educating patient, discussing with case manager specialist/social workers/dc planners, documenting/other paperwork and evaluating patient/reviewing data Coding Level of Care Code Acute Code for g Fwd Diagnoses Suicidal ideation R45.851 Hirsutism L68.0 Hip pain M25.559 PTSD (post-traumatic stress disorder) F43.10 Major depressive disorder F32.9 Borderline personality disorder F60.3
[2024-08-14 14:27] VITALS: BP 102/62; PULSE 81; RESP 17; TEMP 36.7; O2SAT 95
--- NOTE | 2024-08-14 15:15 | PC.NURSE ---
while going over discharge instructions with patient, patient stated to nurse I have all these thoughts in my mind racing over and over, first thing I see is that I am sitting in my car holding a gun to my head, second thing after that is I see myself holding a noose fixing to put it around my neck, third thing is I see myself sitting in my car at the intersection near my house thinking of running my car into a big truck. this nurse asked if she felt like harming herself at this time or acting on the images playing through her head, patient stated no but she continued to tell this nurse it just keeps on and on in my head until I have had enough that I just want to react to it. this nurse asked how she would react patient said she would overdose. patient then smiled at staff and asked but I'm still leaving today right staff told patient that I would have to relay the info back to physician. this nurse told battery recharger and alerted Dr. Proctor, awaiting response from physician
--- NOTE | 2024-08-14 15:26 | DCPLANNER ---
IMM completed 08/14/2024 @ [id number]. Pt was given a copy of her rights.
[2024-08-14] MEDS: hyDROXYzine 25 mg Capsule 50 MG PO (16:57)
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
[2024-08-14] MEDS: OLANZapine 5 mg ODT PO (19:51)
[2024-08-14] MEDS: ibuprofen 800 mg tablet PO (20:10)
[2024-08-14] MEDS: CLONazepam 0.5 mg Tablet 2 MG PO (20:11)
[2024-08-14] MEDS: trazodone 50 mg Tablet 100 MG PO (20:11)
[2024-08-14] MEDS: LORazepam 2 mg Tablet PO (20:24)
[2024-08-14 20:29] VITALS: BP 113/82; PULSE 91; RESP 18; TEMP 37.2; O2SAT 95
[2024-08-15 06:00] VITALS: BP 100/55; PULSE 61; RESP 16; TEMP 36.8; O2SAT 96
[2024-08-15] MEDS: multivitamin therapeutic Tablet 1 TAB PO (10:42)
[2024-08-15] MEDS: buPROPion XL (24 HR) 150 mg Tablet PO (10:42)
--- NOTE | 2024-08-15 11:21 | PC.NURSE ---
Pt. slept in late this am. Came up to the nurses station after waking up hoping to go home today.
== END 2024-08-15 13:05 | disposition home or self-care (01) | DRG 881 ==
LOC: ER 20:51 → NP 20:52
PROVIDERS: Admitting Provider Psychiatry & Neurology Psychiatry; Emergency Provider Emergency Medicine; PCP Internal Medicine; Visit Provider Psychiatry & Neurology Psychiatry
DX: F32.9 Major depressive disorder, single episode, unspecified (principal); Z68.41 Body mass index [BMI] 40.0-44.9, adult; R45.851 Suicidal ideations; T50.916A Underdosing of multiple unspecified drugs, medicaments and biological substances, initial encounter; Z91.128 Patient's intentional underdosing of medication regimen for other reason; L68.0 Hirsutism; F43.10 Post-traumatic stress disorder, unspecified; F60.3 Borderline personality disorder; E66.9 Obesity, unspecified; R19.7 Diarrhea, unspecified; Z91.410 Personal history of adult physical and sexual abuse; Z87.898 Personal history of other specified conditions; Z91.51 Personal history of suicidal behavior; Z81.8 Family history of other mental and behavioral disorders
CPT/HCPCS: 36415; 73130; 80053; 80306; 80307; 81025; 85025; 96372; 97150; 97165; 99285; J2550; Q0162

== ENCOUNTER → 2024-08-16 10:54 | Outpatient (BNVA) | payer MEDICARE, SELFPAY | PROVIDERS: PCP Internal Medicine; Visit Provider Student in an Organized Health Care Education/Training Program | DX: Z98.890 Other specified postprocedural states (principal) | CPT/HCPCS: 99213 ==

== ENCOUNTER → 2024-09-27 08:03 | Outpatient (BNVA) | payer MEDICARE, SELFPAY | PROVIDERS: PCP Internal Medicine; Visit Provider Physician Assistant | DX: Z98.890 Other specified postprocedural states (principal); M75.21 Bicipital tendinitis, right shoulder; M75.41 Impingement syndrome of right shoulder; S49.91XA Unspecified injury of right shoulder and upper arm, initial encounter; X58.XXXA Exposure to other specified factors, initial encounter | CPT/HCPCS: 73030; 99213 ==

== ENCOUNTER 2025-01-27 14:27 | Emergency (ER) | payer MEDICARE, SELFPAY ==
--- OUTSIDE RECORDS SUMMARY | 2024-12-21 04:00 | XMS_ITS ---
Author Organization [facility] Address [address] [place] [address] Care Team Providers Care Senior Cytotechnologist Name Role Phone Pavel Gonzalez Primary Care Provider [phone] REASON FOR VISIT 6 WEEK F/U Encounters Encounter Location Date Provider Diagnosis [facility] [address] [place] [id number] 12/21/2024 Pavel Gonzalez Plan Of Treatment No Information Progress Notes * Richard PIPER EDOB:[birth year] (44 yo F)Acc No.[id number]:12/21/2024 Progress Notes Patient: Dalila lugo Richard Brooke Provider: Ayaz Gonzalez MD :1980 A ge:44 Y S ex:Female Date:12/21/2024 Address:[address] [place], [place] [id number] Subjective: * Chief Complaints: * 6 WEEK F/U Care Plan Details* * Electronic signature of Kapil Gonzalez MD on 01/27/2025 at 02:33 PM CDT Sign off status: Pending * Provider: Ayaz Gonzalez MD Date: 12/21/2024 Generated for Izabeli ng/Faxing/eTransmitting on: 01/27/2025 02:33 PM CDT
--- OUTSIDE RECORDS SUMMARY | 2025-01-27 14:33 | XMS_ITS ---
Author Organization Unknown Medications Date Medication Dosage DosageUnit StartDate StopDate StopReason Active DoseQuantity DoseUnit Dispense DispenseUnit Refills NdcCode DrugCode PharmacyId IsPrescription MappedMedication Srcstatus Custom 11/09 00:00 :00 Fluticasone -Salmeterol 500-50 MCG/ACT Aerosol Powder Breath Activated 01/10/2024 00:00:00 0 60 0 [id number] 2 856 P Not Taking 10/12 00:00 :00 Fluticasone -Salmeterol 500-50 MCG/ACT Aerosol Powder Breath Activated 01/10/2024 00:00:00 0 60 0 [id number] 2 856 P Not Taking 09/08 00:00 :00 Fluticasone -Salmeterol 500-50 MCG/ACT Aerosol Powder Breath Activated 01/10/2024 00:00:00 0 60 0 [id number] 2 856 P Not Taking 08/10 00:00 :00 Fluticasone -Salmeterol 500-50 MCG/ACT Aerosol Powder Breath Activated 01/10/2024 00:00:00 0 60 0 [id number] 2 856 P Not Taking 03/28 00:00 :00 Fluticasone -Salmeterol 500-50 MCG/ACT Aerosol Powder Breath Activated 01/10/2024 00:00:00 1 60 0 [id number] 2 856 P Taking 03/16 00:00 :00 Fluticasone -Salmeterol 500-50 MCG/ACT Aerosol Powder Breath Activated 01/10/2024 00:00:00 1 60 0 [id number] 2 856 P Taking 02/14 00:00 :00 Fluticasone -Salmeterol 500-50 MCG/ACT Aerosol Powder Breath Activated 01/10/2024 00:00:00 1 60 0 [id number] 2 856 P Taking 02/07 00:00 :00 Fluticasone -Salmeterol 500-50 MCG/ACT Aerosol Powder Breath Activated 01/10/2024 00:00:00 1 60 0 [id number] 2 856 P Taking 02/03 00:00 :00 Fluticasone -Salmeterol 500-50 MCG/ACT Aerosol Powder Breath Activated 01/10/2024 00:00:00 1 60 0 1219544 2 856 P Taking 11/09 00:00 :00 Ibuprofen 800 MG Tablet 1 151304 85 540 Taking 10/12 00:00 :00 Ibuprofen 800 MG Tablet 1 945428 85 540 Taking 09/08 00:00 :00 Ibuprofen 800 MG Tablet 1 600957 85 540 Taking 11/09 00:00 :00 KlonoPIN 1 MG Tablet 05/01/2021 00:00:00 0 60 Tablet 5 42371 061 010 P Not Taking 10/12 00:00 :00 KlonoPIN 1 MG Tablet 05/01/2021 00:00:00 0 60 Tablet 5 38580 061 010 P Not Taking 09/08 00:00 :00 KlonoPIN 1 MG Tablet 05/01/2021 00:00:00 0 60 Tablet 5 55019 061 010 P Not Taking 08/10 00:00 :00 KlonoPIN 1 MG Tablet 05/01/2021 00:00:00 1 60 Tablet 5 83222 061 010 P Taking 03/28 00:00 :00 KlonoPIN 0.5 MG Tablet 05/01/2021 00:00:00 1 60 Tablet 5 45445 060 510 P Taking 03/16 00:00 :00 KlonoPIN 0.5 MG Tablet 05/01/2021 00:00:00 1 60 Tablet 5 05526 060 510 P Taking 02/14 00:00 :00 KlonoPIN 0.5 MG Tablet 05/01/2021 00:00:00 1 30 Tablet 5 55413 060 510 P Taking 02/07 00:00 :00 KlonoPIN 0.5 MG Tablet 05/01/2021 00:00:00 1 30 Tablet 5 25580 060 510 P Taking 02/03 00:00 :00 KlonoPIN 0.5 MG Tablet 05/01/2021 00:00:00 1 30 Tablet 5 63201 060 510 P Taking 11/09 00:00 :00 Latuda 120 MG Tablet 0 5 67744655 230 P Not Taking 10/12 00:00 :00 Latuda 120 MG Tablet 0 5 96467953 230 P Not Taking 09/08 00:00 :00 Latuda 120 MG Tablet 0 5 18411112 230 P Not Taking 08/10 00:00 :00 Latuda 120 MG Tablet 0 5 88263627 230 P Not Taking 03/28 00:00 :00 Latuda 120 MG Tablet 1 5 42278434 230 P Taking 03/16 00:00 :00 Latuda 120 MG Tablet 1 30 Tablet 5 6340 2031 230 P Refill 03/16 00:00 :00 Latuda 80 MG Tablet 1 30 Tablet 5 08208 030 830 P Taking 02/14 00:00 :00 Latuda 80 MG Tablet 1 30 Tablet 5 16942 030 830 P Taking 02/07 00:00 :00 Latuda 80 MG Tablet 1 30 Tablet 5 32492 030 830 P Taking 02/03 00:00 :00 Latuda 80 MG Tablet 1 30 Tablet 5 19209 030 830 P Taking 11/09 00:00 :00 Lybalvi 5-10 MG Tablet 0 2122394 5 142 Not Taking 10/12 00:00 :00 Lybalvi 5-10 MG Tablet 0 8020062 5 142 Not Taking 09/08 00:00 :00 Lybalvi 5-10 MG Tablet 0 7361126 5 142 Not Taking 08/10 00:00 :00 Lybalvi 5-10 MG Tablet 0 3734141 5 142 Not Taking 03/28 00:00 :00 Lybalvi 5-10 MG Tablet 1 5157404 5 142 Taking 09/08 00:00 :00 Meloxicam 15 MG Tablet 09/08/2024 00:00:00 00:00:00 0 30 92124172 501 P Start 11/09 00:00 :00 Ondansetron 8 MG Tablet Disintegrat ing 1 14395233 110 Taking 10/12 00:00 :00 Ondansetron 8 MG Tablet Disintegrat ing 1 94447271 110 Taking 11/09 00:00 :00 Ondansetron HCl 4 MG Tablet 08/10/2024 00:00:00 0 20 3 2996239 5 161 P Not Taking 10/12 00:00 :00 Ondansetron HCl 4 MG Tablet 08/10/2024 00:00:00 0 20 3 2445714 5 161 P Not Taking 09/08 00:00 :00 Ondansetron HCl 4 MG Tablet 08/10/2024 00:00:00 0 20 3 9158768 5 161 P Not Taking 08/10 00:00 :00 Ondansetron HCl 4 MG Tablet 08/10/2024 00:00:00 1 20 3 5290555 5 161 P Start 11/09 00:00 :00 Pantoprazol e Sodium 40 mg Tablet Delayed Release 1 30 3 94151789 099 P Taking 10/18 00:00 :00 Pantoprazol e Sodium 40 mg Tablet Delayed Release 1 30 3 58962862 099 P Refill 10/12 00:00 :00 Pantoprazol e Sodium 40 mg Tablet Delayed Release 1 30 Tablet 3 907857 56 099 Taking 09/29 00:00 :00 Pantoprazol e Sodium 40 mg Tablet Delayed Release 1 30 Tablet 3 742163 56 099 Start 09/29 00:00 :00 Pantoprazol e Sodium 40 MG Tablet Delayed Release 0 30 00404505 910 Stop 09/08 00:00 :00 Pantoprazol e Sodium 40 MG Tablet Delayed Release 09/08/2024 00:00:00 1 30 1932650 8 910 P Start 11/09 00:00 :00 Prazosin HCl 5 MG Capsule 0 549087 06 901 Not Taking 10/12 00:00 :00 Prazosin HCl 5 MG Capsule 0 022254 06 901 Not Taking 09/08 00:00 :00 Prazosin HCl 5 MG Capsule 0 120656 06 901 Not Taking 08/10 00:00 :00 Prazosin HCl 5 MG Capsule 0 136184 06 901 Not Taking 03/28 00:00 :00 Prazosin HCl 5 MG Capsule 1 686406 06 901 Taking 03/16 00:00 :00 Prazosin HCl 5 MG Capsule 1 171796 06 901 Taking 02/14 00:00 :00 Prazosin HCl 5 MG Capsule 1 100187 06 901 Taking 02/07 00:00 :00 Prazosin HCl 5 MG Capsule 1 980861 06 901 Taking 02/03 00:00 :00 Prazosin HCl 5 MG Capsule 1 437065 06 901 Taking 11/09 00:00 :00 traZODone HCl 100 MG Tablet 0 598782 86 961 Not Taking 10/12 00:00 :00 traZODone HCl 100 MG Tablet 0 359459 86 961 Not Taking 09/08 00:00 :00 traZODone HCl 100 MG Tablet 0 815969 86 961 Not Taking 08/10 00:00 :00 traZODone HCl 100 MG Tablet 1 683452 86 961 Taking 03/28 00:00 :00 traZODone HCl 100 MG Tablet 1 217483 86 961 Taking 11/09 00:00 :00 Viibryd 10 MG Tablet 0 30 Tablet 5 0045 6111 030 P Not Taking 10/12 00:00 :00 Viibryd 10 MG Tablet 0 30 Tablet 5 0045 6111 030 P Not Taking 09/08 00:00 :00 Viibryd 10 MG Tablet 0 30 Tablet 5 0045 6111 030 P Not Taking 08/10 00:00 :00 Viibryd 10 MG Tablet 1 30 Tablet 5 0045 6111 030 P Taking 03/28 00:00 :00 Viibryd 40 MG Tablet 1 30 Tablet 5 0045 6114 030 P Taking 03/16 00:00 :00 Viibryd 40 MG Tablet 1 30 Tablet 5 0045 6114 030 P Taking 02/14 00:00 :00 Viibryd 40 MG Tablet 1 30 Tablet 5 0045 6114 030 P Taking 02/07 00:00 :00 Viibryd 40 MG Tablet 1 30 Tablet 5 0045 6114 030 P Taking 02/03 00:00 :00 Viibryd 40 MG Tablet 1 30 Tablet 5 0045 6114 030 P Taking 11/09 00:00 :00 Wellbutrin XL 300 MG Tablet Extended Release 24 Hour 0 27376013 107 Not Taking 11/09 00:00 :00 Wellbutrin XL 150 MG Tablet Extended Release 24 Hour 0 35905844 007 Not Taking 10/12 00:00 :00 Wellbutrin XL 300 MG Tablet Extended Release 24 Hour 0 84209245 107 Not Taking 10/12 00:00 :00 Wellbutrin XL 150 MG Tablet Extended Release 24 Hour 0 27238329 007 Not Taking 09/08 00:00 :00 Wellbutrin XL 300 MG Tablet Extended Release 24 Hour 0 37873350 107 Not Taking 09/08 00:00 :00 Wellbutrin XL 150 MG Tablet Extended Release 24 Hour 0 30458991 007 Not Taking 08/10 00:00 :00 Wellbutrin XL 300 MG Tablet Extended Release 24 Hour 0 87961669 107 Not Taking 08/10 00:00 :00 Wellbutrin XL 150 MG Tablet Extended Release 24 Hour 0 64819101 007 Not Taking 03/28 00:00 :00 Wellbutrin XL 300 MG Tablet Extended Release 24 Hour 1 22404807 107 Taking 03/28 00:00 :00 Wellbutrin XL 150 MG Tablet Extended Release 24 Hour 1 02785206 007 Taking 03/16 00:00 :00 Wellbutrin XL 300 MG Tablet Extended Release 24 Hour 1 27035259 107 Taking 03/16 00:00 :00 Wellbutrin XL 150 MG Tablet Extended Release 24 Hour 1 36484633 007 Taking 02/14 00:00 :00 Wellbutrin XL 300 MG Tablet Extended Release 24 Hour 1 85926601 107 Taking 02/14 00:00 :00 Wellbutrin XL 150 MG Tablet Extended Release 24 Hour 1 71067795 007 Taking 02/07 00:00 :00 Wellbutrin XL 300 MG Tablet Extended Release 24 Hour 1 72991507 107 Taking 02/07 00:00 :00 Wellbutrin XL 150 MG Tablet Extended Release 24 Hour 1 14148944 007 Taking 02/03 00:00 :00 Wellbutrin XL 300 MG Tablet Extended Release 24 Hour 1 67509642 107 Taking 02/03 00:00 :00 Wellbutrin XL 150 MG Tablet Extended Release 24 Hour 1 37190162 007 Taking 11/09 00:00 :00 Xifaxan 550 MG Tablet 11/09/2024 00:00:00 00:00:00 0 60 0 12802834 302 P Start
--- OUTSIDE RECORDS SUMMARY | 2025-01-27 14:33 | XMS_ITS | Patient Health Record ---
Author Organization [facility] Address [address] [place] [address] Care Team Providers [employer] Consultant Name Role Phone Pavel Gonzalez Primary Care Provider Allergies No Known Allergies Results Component Value Reference Range Notes Schedule Confirmation Reviewed date:09/11/2024 11:05:18 AM Interpretation: Performing Lab: Notes/Report: MMU Screen Kalen Adilson w/CAD Schedule Confirmation Reviewed date:09/11/2024 11:05:20 AM Interpretation: Performing Lab: Notes/Report: MMU Screen Kalen Adilson w/CAD MRI UE JT w/ + w/o Cont [id number] Reviewed date:03/22/2024 01:30:47 PM Interpretation: Performing Lab: Notes/Report: EGD, Upper GI Diagnostic-[id number] Reviewed date:10/30/2024 02:15:26 PM Interpretation: Performing Lab: Notes/Report: Diagnostic Colonoscopy-[id number] Reviewed date:10/30/2024 02:15:45 PM Interpretation: Performing Lab: Notes/Report: EGD, Upper GI Diagnostic-[id number] 35 Reviewed date:10/30/2024 04:14:55 PM Interpretation: Performing Lab: Notes/Report: Diagnostic Colonoscopy-[id number] Reviewed date:10/30/2024 04:14:40 PM Interpretation: Performing Lab: Notes/Report: MMU Screen Kalen Adilson w/CAD Reviewed date:10/02/2024 11:17:50 AM Interpretation: Performing Lab: Notes/Report: [id number] MMU Screen Kalen Adilson w/CAD Reviewed date:10/02/2024 11:17:56 AM Interpretation: Performing Lab: Notes/Report: See Below For Report MMU Screen Kalen Adilson w/CAD Read See Below For Report Reason For Referral Reason Small insertion site tear Rt shoulder Diagnosis 1 Tendinitis of right infraspinatus tendon (M75.81) Referral Organization [facility] Referring Provider First Name Kevin esteban Referring Provider Last Name Lisa Referring Provider Speciality Internal M edicine Referred Provider Jc Caldwell Referred Provider Specialty Orthopedic S urgery General Notes Janie Cullen 05:04:52 PM >faxed Bassem Eldridge Heidi 03/29/2024 10:12:49 AM >PER [place] FROM CLINIC SUPPORT TEAM SCHEDULED Apr 10:30Bassem Heidi 06/22/2024 08:46:13 AM >PER MARECLO SHE IS REQUESTING NOTES FROM DR. LI OFFICE, Radha Luevano 06/22/2024 09:01:46 AM >PROGRESS NOTES IN REFERRAL FILE Referral Priority Routine Referral Appointment Date 04/21/2024 Medications Medication SIG (Take, Route, Frequency, Duration) Notes Start Date End Date Status traZODone HCl 100 MG Tablet 1 tablet at bedtime Orally Once a day Not-Taking Ibuprofen 800 MG Tablet 1 tablet with fo od or milk as needed Orally every 8 hrs; Duration: 30 days Active Viibryd 10 MG Tablet 1 tablet with food Orally Once a day; Duration: 30 days Not-Taking KlonoPIN 1 MG Tablet 1 tablet as needed Orally twice a day; Duration: 30 days 05/01/2021 Not-Taking Lybalvi 5-10 MG Tablet 1 tablet Orally O nce a day Not-Taking Ondansetron HCl 4 MG Tablet 1 tablet Orally every 8 hours as needed; Duration: 30 days 08/10/2024 Not-Taking Latuda 120 MG Tablet 1/2 tablet with lita d Orally Once a day; Duration: 30 days Not-Taking Fluticasone-Salmeterol 500-50 MCG/ACT Aerosol Powder Breath Activated 1 puff Inhalation Twice a day; Duration: 30 days 01/10/2024 Not-Taking Ondansetron 8 MG Tablet Disintegrating 1 tablet on the tongue and allow to dissolve as needed Orally Once a day Active Wellbutrin XL 150 MG Tablet Extended Release 24 Hour 1 tablet in the morning Orally Once a day Not-Taking Wellbutrin XL 300 MG Tablet Extended Release 24 Hour 1 tablet in the morning Orally Once a day Not-Taking Pantoprazole Sodium 40 mg Tablet Delayed Release TAKE ONE TABLET BY MOUTH ONCE DAILY one-half TO one hour before morning meal Orally Daily; Duration: 30 days Active Prazosin HCl 5 MG Capsule 1 capsule at b edtime Orally Once a day Not-Taking Immunizations Vaccine Route Administration Date Status Comme nts Flucelvax Trivalent, Syringe 0.5 mL, PF Unknown 11/09/2024 Refused Tdap IM Intramuscular 02/08/2024 Administered Social History Tobacco Use: Social History Observation Description Date Details (start date - stop date) Never Smoker NA - NA Social History Depression Screening Social Info Question Answer Notes depression screening findings Findings Positive (5+ without suicidality) 08/10/24 PHQ-9 Little interest or pleasure in doing things Several days Feeling down, depressed, or hopeless Several day s Trouble falling or staying asleep, or sleeping t oo much Several days Feeling tired or having little energy Several da ys Poor appetite or overeating Not at all Feeling bad about yourself, or that you are a failure, or have let yourself or your family down Several days Trouble concentrating on thi ngs, such as reading the newspaper or watching television Not at all Moving or speaking so slowly that other people could have noticed. Or the opposite ? being so fidgety or restless that you have been moving around a lot more than usual Not at all Thoughts that you would be b moon off , or of hurting yourself in some way Not at all Total Score 5 Interpretation Mild Depression Drugs/Alcohol: Social Info Question Answer Notes Alcohol Screen (Audit-C) Did you have a drink containing alcohol in the past year? No Points 0 Interpretation Negative Tobacco Use: Social Info Question Answer Notes Tobacco Control (Standard) Tobacco use: Nonsmoker Additional Details Category Social Info Options Details Drugs/Alcohol: Do you smoke marijuana? Ad mits Section Notes: CIME Dep/tob - 08/10/24 Dep/tob - 08/10/24 CIME Dep/tob - 08/10/24 05/01/21 05/01/21 Dep/tob - 08/10/24 05/01/21 Problems Problem Type SNOMED Code ICD Code Onset Dates Problem Status W/U Status Risk Notes Problem Trochanteric bursitis of left hip (538757908939420 ) Trochanteric bursitis, left hip (M70.62) Active confirmed Problem Pleurisy (819042846) Pleurisy (R09.1) Active confirmed Problem Bipolar 1 disorder (429577092) Bipolar 1 disorder (F31.9) Active confirmed Problem Dysthymia (16134913) Dysthymia (F34.1) Active confirmed Problem Arthralgia of the pelvic region and thigh (761867242) Hip pain, left (M25.552) Active confirmed Problem Nausea (756145395) Postprandial nausea (R11.0) Active confirmed Problem Morbid obesity (386741262) Morbid obesity (E66.01) Active confirmed Problem Calcaneal spur of right foot (745593274245257 ) Calcaneal spur of right foot (M77.31) Active confirmed Problem Tendinitis of right infraspinatus tendon (M75.81) Active confirmed Vital Signs Heart Rate 82 /min 11/09/2024 Temperature 98.7 degrees Fahrenheit 11/09/2024 Height-cm 165.1 cm 11/09/2024 Oximetry 96 % 11/09/2024 Blood pressure diastolic 80 mm Hg 11/09/2024 Weight-kg 116.57 kg 11/09/2024 Height 65 in 11/09/2024 Blood pressure systolic 138 mm Hg 11/09/2024 Weight 257 lbs 11/09/2024 BMI 42.76 kg/m2 11/09/2024 Procedures Procedure Date Ordered Date Performed Result Body Sit e THER/PROPH/DIAG INJ, SC/IM 02/08/2024 02/17/2024 N/A Encounters Encounter Location Date Provider Diagnosis [facility] [address] [place] [phone] 02/04/2024 Pavel Gonzalez Bipolar 1 disorder F31.9 [facility] [address] [phone] 02/08/2024 Pavel Gonzalez Laceration of right thumb without foreign body without damage to nail, initial encounter S61.011A and Contact with other sharp object(s), not elsewhere classified, initial encounter W26.8XXA [facility] [address] [place] [phone] 02/15/2024 Pavel Gonzalez Tendinitis of right infraspinatus tendon M75.81 [facility] [address] [place] [phone] 03/16/2024 Pavel Gonzalez Bipolar 1 disorder F31.9 ; Trochanteric bursitis, left hip M70.62 ; Tendinitis of right infraspinatus tendon M75.81 and Pleurisy R09.1 [facility] [address] [place] [phone] 03/28/2024 Pavel Gonzalez Bipolar 1 disorder F31.9 ; Trochanteric bursitis, left hip M70.62 and Hip pain, left M25.552 [facility] [address] [address] 08/10/2024 Pavel Gonzalez Nausea R11.0 ; Bipolar 1 disorder F31.9 ; Morbid obesity E66.01 ; BMI 40.0-44.9, adult Z68.41 and Depression screen Z13.31 [facility] [address] [place] [phone] 09/08/2024 Pavel Gonzalez Bipolar 1 disorder F31.9 ; Tendinitis of right infraspinatus tendon M75.81 ; Trochanteric bursitis, left hip M70.62 and Depression screen Z13.31 [facility] [address] [place] [phone] 10/12/2024 Pavel Gonzalez Bipolar 1 disorder F31.9 ; Postprandial nausea R11.0 ; Chronic diarrhea K52.9 and Depression screen Z13.31 [facility] [address] [place] [address] 10/27/2024 Pavel Gonzalez Acute diarrhea R19.7 [facility] [address] [place] [phone] 11/09/2024 Pavel Gonzalez Chronic diarrhea K52.9 ; Depression screen Z13.31 ; Encounter for immunization Z23 and Immunization not carried out because of patient refusal Z28.21 [facility] [address] [address] 03/22/2024 Pavel Gonzalez [facility] [address] [place] [phone] 03/22/2024 Pavel Gonzalez Tendinitis of right infraspinatus tendon M75.81 [facility] [address] [place] [phone] 10/18/2024 Pavel Gonzalez [facility] [address] [place] [phone] 01/25/2025 Pavel Gonzalez Assessments Encounter Date Diagnosis (ICD Code) Assessment Notes Treatment Notes Treatment Clinical Notes Section Notes 02/04/2024 Bipolar 1 disorder (ICD-10 - F31.9) 02/08/2024 Laceration of right thumb without foreign body without damage to nail, initial encounter (ICD-10 - S61.011A) 02/08/2024 Contact with other sharp object(s), not elsewhere classified, initial encounter (ICD-10 - W26.8XXA) 02/15/2024 Tendinitis of right infraspinatus tendon (ICD-10 - M75.81) 03/16/2024 Bipolar 1 disorder (ICD-10 - F31.9) She has had some episodes of SI. She doesn't have a plan. She promises to go to the ER if she becomes suicidal. We don't have much room to move on her latuda. 03/16/2024 Trochanteric bursitis, left hip (ICD-10 - M70.62) 03/22/2024 Tendinitis of right infraspinatus tendon (ICD-10 - M75.81) 03/28/2024 Bipolar 1 disorder (ICD-10 - F31.9) 08/10/2024 Nausea (ICD-10 - R11.0) 08/10/2024 Bipolar 1 disorder (ICD-10 - F31.9) 09/08/2024 Bipolar 1 disorder (ICD-10 - F31.9) 10/12/2024 Bipolar 1 disorder (ICD-10 - F31.9) 10/12/2024 Postprandial nausea (ICD-10 - R11.0) --- to be completed at [facility] --x-to be completed at [facility] ---to be completed at [facility] ---to be completed at [facility] 10/27/2024 Acute diarrhea (ICD-10 - R19.7) 11/09/2024 Chronic diarrhea (ICD-10 - K52.9) 11/09/2024 Depression screen (ICD-10 - Z13.31) 10/12/2024 Chronic diarrhea (ICD-10 - K52.9) --- to be completed at [facility] --x-to be completed at [facility] ---to be completed at [facility] ---to be completed at [facility] 09/08/2024 Tendinitis of right infraspinatus tendon (ICD-10 - M75.81) 08/10/2024 Morbid obesity (ICD-10 - E66.01) 03/28/2024 Trochanteric bursitis, left hip (ICD-10 - M70.62) 03/16/2024 Tendinitis of right infraspinatus tendon (ICD-10 - M75.81) 03/16/2024 Pleurisy (ICD-10 - R09.1) 03/28/2024 Hip pain, left (ICD-10 - M25.552) 08/10/2024 BMI 40.0-44.9, adult (ICD-10 - Z68.41) 09/08/2024 Trochanteric bursitis, left hip (ICD-10 - M70.62) 10/12/2024 Depression screen (ICD-10 - Z13.31) 11/09/2024 Encounter for immunization (ICD-10 - Z23) 11/09/2024 Immunization not carried out because of patient refusal (ICD-10 - Z28.21) 09/08/2024 Depression screen (ICD-10 - Z13.31) 08/10/2024 Depression screen (ICD-10 - Z13.31) 02/04/2024 Other Lab drawn for [facility] Venipuncture performed by Janie Cullen. Left arm/hand. One attempt. Pt tolerated well, bleeding controlled with light dressing. Lab sent to [facility] via [facility]. 03/28/2024 Other Cont current treatment, increase walking 10/27/2024 Other see scanned document from [facility] in patients documents. Plan Of Treatment No Information Insurance Providers Payer Name Payer Address Payer Phone Subscriber Number Group Number Insured Name Patient Relationship to Insured Coverage Start Date Coverage End Date [employer] Replacement [address] [address] [place] [address] [id number] Maryjane Piper Self - patient is the insured [place] Medicaid [address] [place] [address] [id number] Maryjane Piper Self - patient is the insured Medications Administered Medication Instructions Date of Administration Dosage Notes BUPivacaine HCl 09/22/2023 1 mL DEPO-Medrol 09/22/2023 80 mg BUPivacaine HCl 08/17/2023 1 mL BUPivacaine HCl 01/10/2024 1 mL DEPO-Medrol 08/17/2023 80 mg DEPO-Medrol 01/10/2024 80 mg Medical (General) History Medical History History ICD Code depression Surgical History Surgery Date(Month/Year) appendectomy right foot surgery Colonoscopy [facility] 10/27/24
[2025-01-27 14:36] VITALS: BP 145/78; PULSE 70; RESP 18; TEMP 36.6; O2SAT 98; BMI 39.9
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
== END 2025-01-27 21:23 | disposition home or self-care (01) ==
PROVIDERS: Emergency Provider Physician Assistant; PCP Internal Medicine
DX: S46.911A Strain of unspecified muscle, fascia and tendon at shoulder and upper arm level, right arm, initial encounter (principal); W22.8XXA Striking against or struck by other objects, initial encounter
CPT/HCPCS: 73030; 96372; 99284; J1100; J1885; J9999

== ENCOUNTER 2025-02-05 20:53 | Emergency (ER) | payer OTHER, MEDICAID, SELFPAY ==
--- OUTSIDE RECORDS SUMMARY | 2024-12-21 04:00 | XMS_ITS ---
Author Organization [facility] Address [address] [place] [address] Care Team Providers Care Body Art Technician Name Role Phone Pavel Gonzalez Primary Care Provider [phone] REASON FOR VISIT 6 WEEK F/U Encounters Encounter Location Date Provider Diagnosis [facility] [address] [address] 12/21/2024 Pavel Gonzalez Plan Of Treatment Next Appt Details Provider Name:Pavel Gonzalez, 02/06/2025 02:00:00 PM, [address], [phone], Progress Notes * Richard PIPER EDOB:[birth year] (44 yo F)Acc No.[id number]:12/21/2024 Progress Notes Patient: Dalila lugo Richard Cox Provider: Ayaz Gonzalez MD :1980 A ge:44 Y S ex:Female Date:12/21/2024 Address:[address] [place], [place] [id number] Subjective: * Chief Complaints: * 6 WEEK F/U Care Plan Details* * Electronic signature of Kapil Gonzalez MD on 02/05/2025 at 09:10 PM CDT Sign off status: Pending * Provider: Ayaz Gonzalez MD Date: 12/21/2024 Generated for Karina ferguson/Rachel/Alva on: 0 02/05/2025 09:10 PM CDT
[2025-02-05 20:55] VITALS: BP 155/76; PULSE 85; RESP 18; TEMP 37.2; O2SAT 97; BMI 39.9
--- NOTE | 2025-02-05 21:07 | ECG_ITS ---
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 Measurements Intervals [place] Rate: 80 P: 60 WI: 137 QRS: 21 QRSD: 102 T: 30 QT: 372 QTc: 429 Interpretive Statements SINUS RHYTHM INCOMPLETE RIGHT BUNDLE BRANCH BLOCK [90+ ms QRS DURATION, TERMINAL R IN V1/V2, 40+ ms S IN I/aVL/V4/V5/V6] No previous ECG available for comparison Electronically Signed On 02-06-2025 08:04:01 CDT by Sadiq Chavez M.D. [email or web address]
--- OUTSIDE RECORDS SUMMARY | 2025-02-05 21:11 | XMS_ITS | Patient Health Record ---
Author Organization [facility] Address [address] [place] [address] Care Team Providers Care Product Marketing Programs Manager Name Role Phone Pavel Gonzalez Primary Care Provider [phone] Allergies No Known Allergies Results Component Value Reference Range Notes MRI UE JT w/ + w/o Cont [id number] Reviewed date:03/22/2024 01:30:47 PM Interpretation: Performing Lab: Notes/Report: MMU Screen Kalen Adilson w/CAD Reviewed date:10/02/2024 11:17:56 AM Interpretation: Performing Lab: Notes/Report: See Below For Report MMU Screen Kalen Adilson w/CAD Read See Below For Report MMU Screen Kalen Adilson w/CAD Reviewed date:10/02/2024 11:17:50 AM Interpretation: Performing Lab: Notes/Report: [id number] Diagnostic Colonoscopy-[id number] Reviewed date:10/30/2024 04:14:40 PM Interpretation: Performing Lab: Notes/Report: Diagnostic Colonoscopy-[id number] Reviewed date:10/30/2024 02:15:45 PM Interpretation: Performing Lab: Notes/Report: EGD, Upper GI Diagnostic-[id number] Reviewed date:10/30/2024 04:14:55 PM Interpretation: Performing Lab: Notes/Report: EGD, Upper GI Diagnostic-[id number] Reviewed date:10/30/2024 02:15:26 PM Interpretation: Performing Lab: Notes/Report: Schedule Confirmation Reviewed date:09/11/2024 11:05:18 AM Interpretation: Performing Lab: Notes/Report: MMU Screen Kalen Adilson w/CAD Schedule Confirmation Reviewed date:09/11/2024 11:05:20 AM Interpretation: Performing Lab: Notes/Report: MMU Screen Kalen Adilson w/CAD Reason For Referral Reason Small insertion site tear Rt shoulder Diagnosis 1 Tendinitis of right infraspinatus tendon (M75.81) Referral Organization [facility] Referring Provider First Name Kevin esteban Referring Provider Last Name Gonzalez Referring Provider Speciality Internal M edicine Referred Provider Jc Caldwell Referred Provider Specialty Orthopedic S urgery General Notes Janie Cullen 05:04:52 PM >faxed Bassem Eldridge Heidi 03/29/2024 10:12:49 AM >PER ELVER FROM CLINIC SUPPORT TEAM SCHEDULED Apr 10:30Bassem Heidi 06/22/2024 08:46:13 AM >PER MARCELO SHE IS REQUESTING NOTES FROM DR. LI [...] you smoke marijuana? Ad mits Section Notes: 05/01/21 05/01/21 05/01/21 Dep/tob - 08/10/24 Dep/tob - 08/10/24 CIME Dep/tob - 08/10/24 CIME Dep/tob - 08/10/24 Problems Problem Type SNOMED Code ICD Code Onset Dates Problem Status W/U Status Risk Notes Problem Trochanteric bursitis of left hip (302573198864617 ) Trochanteric bursitis, left hip (M70.62) Active confirmed Problem Pleurisy (023370567) Pleurisy (R09.1) Active confirmed Problem Bipolar 1 disorder (624860525) Bipolar 1 disorder (F31.9) Active confirmed Problem Dysthymia (88218989) Dysthymia (F34.1) Active confirmed Problem Arthralgia of the pelvic region and thigh (301957900) Hip pain, left (M25.552) Active confirmed Problem Nausea (035045651) Postprandial nausea (R11.0) Active confirmed Problem Morbid obesity (497227449) Morbid obesity (E66.01) Active confirmed Problem Calcaneal spur of right foot (324952967582453 ) Calcaneal spur of right foot (M77.31) Active confirmed Problem Tendinitis of right infraspinatus tendon (M75.81) Active confirmed Vital Signs Heart Rate 82 /min 11/09/2024 Temperature 98.7 degrees Fahrenheit 11/09/2024 Blood pressure diastolic 80 mm Hg 11/09/2024 Oximetry 96 % 11/09/2024 Height-cm 165.1 cm 11/09/2024 Weight-kg 116.57 kg 11/09/2024 Height 65 in 11/09/2024 Blood pressure systolic 138 mm Hg 11/09/2024 Weight 257 lbs 11/09/2024 BMI 42.76 kg/m2 11/09/2024 Procedures Procedure Date Ordered Date Performed Result Body Sit e THER/PROPH/DIAG INJ, SC/IM 02/08/2024 02/17/2024 N/A Encounters Encounter Location Date Provider Diagnosis [facility] [address] [place] [id number] 02/08/2024 Pavel Gonzalez Laceration of right thumb without foreign body without damage to nail, initial encounter S61.011A and Contact with other sharp object(s), not elsewhere classified, initial encounter W26.8XXA [facility] [address] [place] [phone] 02/15/2024 Pavel Gonzalez Tendinitis of right infraspinatus tendon M75.81 [facility] [address] [phone] 03/16/2024 Pavel Gonzalez Bipolar 1 disorder F31.9 ; Trochanteric bursitis, left hip M70.62 ; Tendinitis of right infraspinatus tendon M75.81 and Pleurisy R09.1 [facility] [address] [place] [phone] 03/28/2024 Pavel Gonzalez Bipolar 1 disorder F31.9 ; Trochanteric bursitis, left hip M70.62 and Hip pain, left M25.552 [facility] [address] [address] 08/10/2024 Pavel Gonzalez Nausea R11.0 ; Bipolar 1 disorder F31.9 ; Morbid obesity E66.01 ; BMI 40.0-44.9, adult Z68.41 and Depression screen Z13.31 [facility] [address] [place] [phone] 09/08/2024 Pavel Gonzalez Bipolar 1 disorder F31.9 ; Tendinitis of right infraspinatus tendon M75.81 ; Trochanteric bursitis, left hip M70.62 and Depression screen Z13.31 [facility] [address] [place] [phone] 10/12/2024 Pavel Gonzalez Bipolar 1 disorder F31.9 ; Postprandial nausea R11.0 ; Chronic diarrhea K52.9 and Depression screen Z13.31 [facility] [address] [place] [address] 10/27/2024 Pavel Gonzalez Acute diarrhea R19.7 [facility] [address] [address] 11/09/2024 Pavel Gonzalez Chronic diarrhea K52.9 ; Depression screen Z13.31 ; Encounter for immunization Z23 and Immunization not carried out because of patient refusal Z28.21 [facility] [address] [place] [phone] 03/22/2024 Pavel Gonzalez [facility] [address] [address] 03/22/2024 Pavel Gonzalez Tendinitis of right infraspinatus tendon M75.81 [facility] [address] [address] 10/18/2024 Pavel Gonzalez [facility] [address] [address] 01/25/2025 Pavel Gonzalez Assessments Encounter Date Diagnosis (ICD Code) Assessment Notes Treatment Notes Treatment Clinical Notes Section Notes 02/08/2024 Laceration of right thumb without foreign [...] - R11.0) --- to be completed at [facility] --x-to be completed at [facility] ---to be completed at [facility] ---to be completed at [facility] 10/27/2024 Acute diarrhea (ICD-10 - R19.7) 11/09/2024 Chronic diarrhea (ICD-10 - K52.9) 11/09/2024 Depression screen (ICD-10 - Z13.31) 10/12/2024 Chronic diarrhea (ICD-10 - K52.9) --- to be completed at [facility] --x-to be completed at [facility] ---to be completed at [facility] ---to be completed at [facility] 09/08/2024 Tendinitis of right infraspinatus tendon (ICD-10 [...] Z13.31) 08/10/2024 Depression screen (ICD-10 - Z13.31) 03/28/2024 Other Cont current treatment, increase walking 10/27/2024 Other see scanned document from [facility] in patients documents. Plan Of Treatment Next Appt Details Provider Name:Pavel Gonzalez, 02/06/2025 02:00:00 PM, [address] [place] [address], [phone], Insurance Providers Payer Name Payer Address Payer Phone Subscriber Number Group Number Insured Name Patient Relationship to Insured Coverage Start Date Coverage End Date [employer] Medicare Replacement [address] [address] [place] [address] [phone] [id number] Maryjane Piper Self - patient is the insured [place] Medicaid [address] [place] [phone] [id number] Maryjane Piper Self - patient is the [...]
[2025-02-05 21:46] VITALS: BP 150/96; PULSE 70; O2SAT 98
[2025-02-05 22:17] VITALS: BP 145/82; PULSE 73; O2SAT 100
[2025-02-05 22:30] VITALS: BP 132/90; PULSE 69; O2SAT 99
[2025-02-05 23:00] VITALS: BP 134/91; PULSE 82; O2SAT 97
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
[2025-02-05 23:30] VITALS: BP 134/81; PULSE 73; RESP 16; O2SAT 97
[2025-02-05 23:38] LABS: Hematocrit 40.6 % (36-47); Hemoglobin 13.30 g/dL (11.27-16.99); Mean Corpuscular HGB Conc 32.8 g/dL (30-55); Mean Corpuscular Hemoglobin 30.1 pg (27-33); Mean Corpuscular Volume 91.9 fl (85-98); Nucleated Red Blood Cells % 0 %; Platelet Count 284 10^3/cmm (157-399); Red Blood Count 4.42 10^6/uL (3.85-5.65); White Blood Count 8.51 10^3/uL (3.29-11.43)
[2025-02-05 23:51] LABS: INR 0.92 (0.8-1.2); Prothrombin Time 13.00 SECONDS (12.1-14.9)
[2025-02-05 23:52] LABS: Partial Thromboplastin Time 27.8 SECONDS (23.9-36.7)
[2025-02-05 23:54] LABS: HCG, Serum Qual Negative (Negative)
[2025-02-05 23:55] LABS: Alanine Aminotransferase 18 U/L (0-33); Albumin Level 4.4 g/dL (3.5-5.2); Alkaline Phosphatase 86 U/L (35-105); Anion Gap 13.0 (5-19); Aspartate Amino Transferase 16 U/L (0-32); Blood Urea Nitrogen 11 mg/dL (6-20); Calcium 8.9 mg/dL (8.5-10.5); Carbon Dioxide 26 mmol/L (22-29); Chloride 105 mmol/L (98-107); Creatinine Clr Calc Pharmacy 148.3810; Globulin 2.9 g/dL (1.3-4.6); Glucose 102 mg/dL (65-115); Osmolality Calculated 290 mOsm/kg (285-295); Potassium 4.0 mmol/L (3.5-5.1); Sodium 140 mmol/L (136-145); Total Protein 7.3 g/dL (6.6-8.7)
[2025-02-06] VITALS: BP 119/73; PULSE 72; RESP 16; O2SAT 96
--- NOTE | 2025-02-06 00:02 | XRR_ITS ---
PROCEDURE INFORMATION: Exam: XR Chest Exam date and time: 02/06/2025 12:06 AM Age: 44 years old Clinical indication: Shortness of breath; C/O SOB; Additional info: Short of breath TECHNIQUE: Imaging protocol: Radiologic exam of the chest. Views: 1 view. COMPARISON: CR XR shoulder RT min 2V* [id number] 01/27/2025 3:15 PM FINDINGS: Lungs: Clear, symmetrically inflated lungs. Pleural spaces: No pleural effusion. No pneumothorax. Heart/Mediastinum: Cardiac silhouette is normal in size for technique. Bones/joints: Age appropriate. XR/XR chest 1V portable [id number] IMPRESSION: No acute cardiopulmonary abnormality.
[2025-02-06 00:39] VITALS: BP 123/78; PULSE 67; RESP 16; O2SAT 100
== END 2025-02-06 00:37 | disposition home or self-care (01) ==
PROVIDERS: Student in an Organized Health Care Education/Training Program; Emergency Provider Physician Assistant; PCP Internal Medicine
DX: J15.9 Unspecified bacterial pneumonia (principal)
CPT/HCPCS: 36415; 71045; 80053; 84703; 85025; 85378; 85610; 85730; 93005; 96374; 96375; 99285; J1100; J1885; J2360; Q0144

== ENCOUNTER → 2025-02-13 15:10 | Outpatient (BNVA) | payer OTHER, SELFPAY | PROVIDERS: PCP Internal Medicine; Visit Provider Physician Assistant | DX: S49.91XA Unspecified injury of right shoulder and upper arm, initial encounter (principal); X58.XXXA Exposure to other specified factors, initial encounter; Z98.890 Other specified postprocedural states | CPT/HCPCS: 20610; 73030; 99213; J3301; J9999 ==

== ENCOUNTER → 2025-05-24 12:54 | Outpatient (BNVA) | payer OTHER, SELFPAY | PROVIDERS: PCP Internal Medicine; Visit Provider Nurse Practitioner Psychiatric/Mental Health | DX: F60.3 Borderline personality disorder (principal); Z79.899 Other long term (current) drug therapy | CPT/HCPCS: 80061; 83036 ==